=== PATIENT | male | born 1940 | race Caucasian/White ===

== ENCOUNTER 2016-07-06 16:01 | Inpatient (IN) | payer OTHER ==
--- NOTE | 2016-07-06 16:15 | EDPRACDOC ---
- General Information Stated Complaint: DIFF/BREATH Time Seen by Provider: 07/06/16 16:07 Home Medications: Home Medications Acetaminophen 650 mg PO Q8H PRN 07/06/16 Albuterol Sulfate Nebs [Proventil, Ventolin] 3 ml INH Q4H PRN 07/06/16 Aluminum;Magnesium;Simethicone [Maalox Plus, Mylanta] 15 ml PO QID 07/06/16 Amitriptyline HCl 50 mg PO QHS 07/06/16 Atorvastatin Calcium [Lipitor] 20 mg PO QHS 07/06/16 Bisacodyl [Dulcolax] 10 mg PO DAILY PRN 07/06/16 Brimonidine Tartrate 1 drop OU BID 07/06/16 Carvedilol [Coreg] 6.25 mg PO BID 07/06/16 Docusate Sodium [Colace] 100 mg PO BID 07/06/16 Dorzolamide HCl/Timolol Maleat [Dorzolamide-Timolol Eye Drops] 1 drop OU BID Ferrous Gluconate 324 mg PO DAILY 07/06/16 Furosemide [Lasix] 20 mg PO DAILY 07/06/16 Guaifenesin [Humabid, Mucinex] 600 mg PO BID 07/06/16 Ipratropium [place] 1 amp NEB Q4H PRN 07/06/16 Latanoprost 1 drop OU QHS 07/06/16 Metoclopramide HCl 10 mg PO .TID BEFORE MEALS 07/06/16 Multivitamin [One Daily] 1 tab PO DAILY 07/06/16 Nitroglycerin [Nitrostat] 0.4 mg SL Q5MX3 PRN 07/06/16 Pantoprazole Sodium [Protonix] 40 mg PO DAILY 07/06/16 Polyvinyl Alcohol [Artificial Tears] 2 drop OU Q12H 07/06/16 Sodium Chloride .65% 2 spray NATE BID 07/06/16 Warfarin Sodium 4 mg PO MOWEFR 07/06/16 Warfarin Sodium 5 mg PO SUTUTHSA 07/06/16 Allergies/Adverse Reactions: Allergies Allergy/AdvReac Type Severity Reaction Status Date / Time No Known Allergies Allergy Verified 07/06/16 16:49 - History of Present Illness HPI: SOB FOR 2 DAYS WITH PRODUCTIVE COUGH OF YELLOW SPUTUM. CHEST PAIN ACROSS CHEST TODAY. MODERATE TO SEVERE SOB. H/O ASBESTOSES. GOT ALBUTEROL NEB BY EMS. NO STEROIDS CURRENTLY. ED Past Medical History - History Reviewed Yes Nurses notes reviewed and agree except as marked EDM Review of Systems - Review of Systems ROS Negative Except as Marked: Yes All systems reviewed and were negative except as marked - Physical Exam Constitutional: Alert (Awake) Oriented to: Time, Person, Place Last recorded Vital Signs: Oxygen Pulse Oxygen Saturation O2 Device Oxygen Flow Rate Fraction of Inspired Oxygen ( FIO2) - HEENT Head: Normal ( normocephalic) Eye Exam: Normal (PERRL, EOMI, Sclera white) Oropharynx: Normal (Pharynx:Moist without exudate,Gums-no swelling) Nose: No Symptoms Reported (septum midline) Neck: Normal (FROM, trachea at midline) - Respiratory/Cardiovascular Respiratory: Rales, Wheezes Cardiovascular: Tachycardia - GI Auscultation: Normal (NABS) Palpation: Normal (Soft,No rebound or guarding, non distended) Tenderness: Non tender Mayorga's Sign: Negative - Musculoskeletal Back: Normal (Non-Tender) Extremities: Normal (Normal tone, Pulses 2+ No cyanosis or edema, FROM) - Integumentary Skin: Normal, Warm, Dry Lymphatics: Normal (no adenopathy) - Neurologic Memory Impaired: Normal Motor Function: Normal (Normal tone, Pulses 2+ No cyanosis or edema, FROM) Cranial Nerve: Normal (CN II-X11 intact sensation, strength 5/5) Cerebellar: Normal Mood Description: Normal Perception: Normal ED SOB MDM - Results Result Diagrams: 07/06/16 16:35 07/06/16 16:35 - EKG EKG #1 EKG Time: 16:24 -: Yes EKG interpreted by me Rate: bpm: 117 Rhythm: ST Block: None Hypertrophy: None ST: Normal Comments: NORMAL EKG - Departure Yes I personally saw and evaluated the patient. Disposition: Admit IP To This Hospital Final Diagnosis: Bilateral pneumonia Qualifiers: Pneumonia type: due to unspecified organism Lung location: unspecified part of lung Qualified Code(s): J18.9 - Pneumonia, unspecified organism Respiratory failure Qualifiers: Chronicity: acute Respiratory failure complication: hypoxia and hypercapnia Qualified Code(s): J96.01 - Acute respiratory failure with hypoxia; J96.02 - Acute respiratory failure with hypercapnia Decision to Admit Time: 17:08 Decision to admit date: 07/06/16 Decision to admit: from ED - Physician Consulted Hospitalist Time Called: 17:08 Provider Called: Javon Duron Time Fingernail Technician Returned Call: 17:08
[2016-07-06 16:28] LABS: ALLEN'S TEST PASS; BEb 10.3 (+/- 2); TCO2 36.5 MMOL/L (23-27)
[2016-07-06 16:29] LABS: ABG Draw Site Left Brachial
[2016-07-06] MEDS ORDERED: ACETAMINOPHEN 650 MG SUPP PR ONE (16:39)
[2016-07-06] MEDS ORDERED: ACETAMINOPHEN 325 MG SUPP PR ONE (16:39)
[2016-07-06 16:48] LABS: MPV 7.4 fL (7.4-10.4)
--- NOTE | 2016-07-06 16:54 | DIRPT ---
CLINICAL DATA: Shortness of breath 2 days with productive cough and chest pain. Former smoker. History of asbestosis. EXAM: PORTABLE CHEST 1 VIEW COMPARISON: None. FINDINGS: Lungs are somewhat hypoinflated with patchy bilateral airspace opacification over the mid to lower lungs left worse than right. Digestion of small amount of bilateral pleural fluid. Cardiomediastinal silhouette is within normal. Multiple surgical clips over the left upper quadrant. IMPRESSION: Patchy bilateral airspace process over the mid to lower lungs left worse than right likely infection. Likely small amount of bilateral pleural fluid. Electronically Signed By: Trevon Silverio M.D. On: 07/06/2016 16:51
[2016-07-06 17:01] LABS: BLOOD UREA NITROGEN 18 MG/DL (9-20); CALC CORRECTED 9.7 MG/DL (8.4-10.2); CALCIUM 9.3 MG/DL (8.4-10.2); CALCULATED OSMOLALITY 275 MOs/Kg (270-290); CHLORIDE 96 mEq/L (98-107); GLUCOSE 166 MG/DL (70-99); SODIUM LEVEL 140 mEq/L (137-146); TOTAL PROTEIN 7.3 G/DL (6.3-8.2)
[2016-07-06 17:05] LABS: PARTIAL THROMB. TIME 31.1 SEC (22-35); PT-INR 1.4
[2016-07-06] MEDS ORDERED: AZITHROMYCIN 500 MG in D5W 250 ML IV ONE (17:09)
[2016-07-06] MEDS ORDERED: CEFTRIAXONE 1 GM in D5W 100 ML IV ONE (17:09)
[2016-07-06 17:34] LABS: SEG NEUTROPHIL 87 % (45-76); TOTAL CELL COUNT 100
[2016-07-06] MEDS ORDERED: Albuterol/Ipratropium Neb 3 ML NEB NEB PRN (17:37)
[2016-07-06] MEDS ORDERED: DEXTROSE 25 GM/50 ML PFS IV PRN (17:37)
[2016-07-06] MEDS ORDERED: Docusate Sodium 100 MG CAP PO PRN (17:37)
[2016-07-06] MEDS ORDERED: GLUCAGON 1 MG VIAL SQ PRN (17:37)
[2016-07-06] MEDS ORDERED: GUAIFENESIN 200 MG/10 ML UDC PO PRN (17:37)
[2016-07-06] MEDS ORDERED: MAGNESIUM HYDROXIDE 30 ML BOTTLE PO PRN (17:37)
[2016-07-06] MEDS ORDERED: BENZONATATE 100 MG PERLES PO PRN (17:37)
[2016-07-06] MEDS ORDERED: ONDANSETRON HCL 4 MG/2 ML VIAL IV PRN (17:37)
[2016-07-06] MEDS ORDERED: GLUCOSE (ORAL GEL) 15 GM TUBE PO PRN (17:37)
--- NOTE | 2016-07-06 17:43 | HISTPHYS ---
- Chief Complaint shortness of breath - History of Present Illness Mr. Cruz is a 76-year-old white male inmate with multiple chronic medical problems who sent to the emergency room with increasing respiratory distress, fevers, chills, shortness of breath, cough, congestion that has steadily worsened over the last couple of days. In the emergency room he was significantly hypoxic and had to be started on BiPAP. Chest x-ray reveals bilateral pulmonary infiltrates. He is severely tachypneic with increased work of breathing and is unable to provide much other history over the BiPAP. He does appear septic and will be admitted to the intensive care unit for further evaluation and management. - Medical History Cardiac History: Reports: Coronary Artery Disease, Atrial Fibrillation Respiratory History: Reports: COPD, Asbestosis GI/ History: Reports: Renal Disease Musculoskeletal History: Reports: Arthritis Systemic History: Reports: Cancer Neurological History: Reports: Cerebrovascular Accident (X2) Psychological History: Denies: Depression - Surgical History Reports: Other (Urostomy) - Medictions/Allergies Allergies No Known Allergies Allergy (Verified 07/06/16 16:49) Current Medication List: Reviewed Home Medications Acetaminophen 650 mg PO Q8H PRN 07/06/16 Albuterol Sulfate Nebs [Proventil, Ventolin] 3 ml INH Q4H PRN 07/06/16 Aluminum;Magnesium;Simethicone [Maalox Plus, Mylanta] 15 ml PO QID 07/06/16 Amitriptyline HCl 50 mg PO QHS 07/06/16 Atorvastatin Calcium [Lipitor] 20 mg PO QHS 07/06/16 Bisacodyl [Dulcolax] 10 mg PO DAILY PRN 07/06/16 Brimonidine Tartrate 1 drop OU BID 07/06/16 Carvedilol [Coreg] 6.25 mg PO BID 07/06/16 Docusate Sodium [Colace] 100 mg PO BID 07/06/16 Dorzolamide HCl/Timolol Maleat [Dorzolamide-Timolol Eye Drops] 1 drop OU BID Ferrous Gluconate 324 mg PO DAILY 07/06/16 Furosemide [Lasix] 20 mg PO DAILY 07/06/16 Guaifenesin [Humabid, Mucinex] 600 mg PO BID 07/06/16 Ipratropium [place] 1 amp NEB Q4H PRN 07/06/16 Latanoprost 1 drop OU QHS 07/06/16 Metoclopramide HCl 10 mg PO .TID BEFORE MEALS 07/06/16 Multivitamin [One Daily] 1 tab PO DAILY 07/06/16 Nitroglycerin [Nitrostat] 0.4 mg SL Q5MX3 PRN 07/06/16 Pantoprazole Sodium [Protonix] 40 mg PO DAILY 07/06/16 Polyvinyl Alcohol [Artificial Tears] 2 drop OU Q12H 07/06/16 Sodium Chloride .65% 2 spray NATE BID 07/06/16 Warfarin Sodium 4 mg PO MOWEFR 07/06/16 Warfarin Sodium 5 mg PO SUTUTHSA 07/06/16 - Family History Reports: No Significant History (Unknown) - Social History Lives: Other (Halfway) Smoking Status: Former smoker (Quit 1974) Social History: Reports: Alcohol Use (Quit 1970) - Review of Systems Yes Review of systems cannot be obtained due to the patient's medical condition (Severe shortness of breath and bipap use) - Physical Exam Constitutional: Alert (Awake), Distress, Other (Severe distress with conversational dyspnea). negative: Well appearing (Acutely ill-appearing) Oriented to: Person Exam: Last Vital Signs Temp 100.7 F H 07/06/16 16:39 Pulse 113 07/06/16 16:39 Resp 26 H 07/06/16 16:39 BP 130/63 07/06/16 16:39 Pulse Ox 89 L 07/06/16 16:39 Intake & Output 07/06/16 07/06/16 07/06/16 07:59 15:59 23:59 Patient's weight 77.564 kg - HEENT Head: Normal ( normocephalic) Eye: Normal (PERRL, EOMI, Sclera white) Oropharynx: Normal (Pharynx:Moist without exudate,Gums-no swelling) Nose: No Symptoms Reported (septum midline) - Respiratory/Cardiovascular Respiratory: Accessory Muscle Use, Rales, Rhonchi, Tachypnea, Wheezes Cardiovascular: Tachycardia, Irregular - GI Auscultation: Normal (NABS) Palpation: Normal (Soft,No rebound or guarding, non distended), Other (Right abdominal urostomy) Tenderness: Non tender - Musculoskeletal Back: Normal (Non-Tender) Extremities: Normal (Normal tone, Pulses 2+ No cyanosis or edema, FROM), Femoral Pulse, Pedal Pulse - Integumentary Skin: Normal, Warm, Dry Lymphatics: Normal (no adenopathy). negative: Adenopathy - Neurologic Memory Impaired: Normal Motor Function: Normal Cranial Nerve: Normal Cerebellar: Normal Mood Description: Normal Thought: Coherent Perception: Normal - Focused CV Perfusion Exam Vital Signs: Last Vital Signs Temp 100.7 F H 07/06/16 16:39 Pulse 113 07/06/16 16:39 Resp 26 H 07/06/16 16:39 BP 130/63 07/06/16 16:39 Pulse Ox 89 L 07/06/16 16:39 - Lab Results Laboratory Results - last 24 hr 07/06/16 07/06/16 07/06/16 16:25 16:35 16:35 WBC 14.4 H RBC 4.70 Hgb 11.3 L Hct 36.3 L MCV 77 L MCH 24.1 L MCHC 31.2 L RDW 15.9 H Plt Count 222 MPV 7.4 Neut % (Auto) Cancelled Lymph % (Auto) Cancelled [place] % (Auto) Cancelled Eos % (Auto) Cancelled Baso % (Auto) Cancelled Absolute Neuts (auto) Cancelled Absolute Lymphs (auto) Cancelled Seg Neuts % (Manual) 87 H Band Neutrophils % 5 Lymphocytes % (Manual) 4 L Monocytes % (Manual) 4 Absolute Neutrophils 13.25 H Absolute Lymphocytes 0.58 L Toxic Granulation 1+ Platelet Estimate Norm RBC Morphology 1+ aniso PT INR APTT Puncture Site Left brachial pH 7.490 H pCO2 46.0 H pO2 49.0 L* HCO3 35.1 H Total CO2 36.5 H Base Excess 10.3 H FiO2 % 2l nc Specimen Drawn By Renzo Sodium 140 Potassium 4.5 Chloride 96 L Carbon Dioxide 35 H Anion Gap 14 BUN 18 Creatinine 0.80 Estimated GFR (MDRD) > 60 Glucose 166 H Calculated Osmolality 275 Calcium 9.3 Corrected Calcium 9.7 Total Bilirubin 0.9 AST 19 ALT 30 Alkaline Phosphatase 96 Troponin I < 0.01 Izj-X-Pkstfyaayhv Pept 215 Total Protein 7.3 Albumin 3.6 07/06/16 16:35 WBC RBC Hgb Hct MCV MCH MCHC RDW Plt Count MPV Neut % (Auto) Lymph % (Auto) [place] % (Auto) Eos % (Auto) Baso % (Auto) Absolute Neuts (auto) Absolute Lymphs (auto) Seg Neuts % (Manual) Band Neutrophils % Lymphocytes % (Manual) Monocytes % (Manual) Absolute Neutrophils Absolute Lymphocytes Toxic Granulation Platelet Estimate RBC Morphology PT 14.6 H INR 1.4 APTT 31.1 Puncture Site pH pCO2 pO2 HCO3 Total CO2 Base Excess FiO2 % Specimen Drawn By Sodium Potassium Chloride Carbon Dioxide Anion Gap BUN Creatinine Estimated GFR (MDRD) Glucose Calculated Osmolality Calcium Corrected Calcium Total Bilirubin AST ALT Alkaline Phosphatase Troponin I Vxa-E-Posoauutkrm Pept Total Protein Albumin - Assessment (1) Respiratory failure J96.90 - RESPIRATORY FAILURE, UNSP, UNSP W HYPOXIA OR HYPERCAPNIA Acute Present on Admission: Yes Qualifiers: Chronicity: acute Respiratory failure complication: hypoxia and hypercapnia Qualified Code(s): J96.01 - Acute respiratory failure with hypoxia ; J96.02 - Acute respiratory failure with hypercapnia Severe with a PO2 in the 40s. Currently sats in the low 90s on BiPAP. This appears to be due to COPD and bilateral pneumonia. IV antibiotics, IV steroids , nebulizer treatments and BiPAP use. Aggressive ICU care. (2) Sepsis A41.9 - SEPSIS, UNSPECIFIED ORGANISM Acute Present on Admission: Yes Qualifiers: Sepsis type: sepsis due to unspecified organism Qualified Code(s): A41.9 - Sepsis, unspecified organism Due to bilateral pneumonia. Severely congested and short of breath. Admit to the intensive care unit on BiPAP. IV fluids, IV antibiotics. Blood, sputum, urine cultures. Patient is acutely and critically ill (3) Bilateral pneumonia J18.9 - PNEUMONIA, UNSPECIFIED ORGANISM Acute Present on Admission: Yes Qualifiers: Pneumonia type: due to unspecified organism Lung location: unspecified part of lung Qualified Code(s): J18.9 - Pneumonia, unspecified organism As above. IV antibiotics and pulmonary toilet. Sputum culture if able. Nebulizer treatments and BiPAP use. Aggressive ICU care. May require intubation (4) COPD exacerbation J44.1 - CHRONIC OBSTRUCTIVE PULMONARY DISEASE W (ACUTE) EXACERBATION Acute Present on Admission: Yes Moderate wheezing and shortness of breath. IV steroids, nebulizer treatments pulmonary toilet (5) Atrial fibrillation I48.91 - UNSPECIFIED ATRIAL FIBRILLATION Chronic Present on Admission: Yes Qualifiers: Atrial fibrillation type: chronic Qualified Code(s): I48.2 - Chronic atrial fibrillation Some tachycardia currently likely due to acute respiratory illness. INR subtherapeutic at 1.4. Will cover with Lovenox. Case Care Discussed with: Patient Total Time: 1 hour 30 minutes Critical Care: Yes
[2016-07-06] MEDS ORDERED: POLYVINYL ALCOHOL OU SCH (17:45)
[2016-07-06] MEDS ORDERED: NS 1,000 ML IV ONE (17:46)
[2016-07-06] MEDS ORDERED: WARFARIN EDUCATION DOCUMENTATION ONE (18:00)
[2016-07-06] MEDS ORDERED: ENOXAPARIN 40 MG/0.4 ML PFS SQ SCH (18:00)
[2016-07-06] MEDS ORDERED: DORZOLAMIDE/TIMOLOL OPHTH SOLN 10 ML OU SCH (19:00)
[2016-07-06] MEDS ORDERED: LATANOPROST 0.005% OPHTH SOLN 2.5 ML OU SCH (19:00)
[2016-07-06] MEDS ORDERED: BRIMONIDINE 0.1% OPHTH SOLN 5 ML OU SCH (19:00)
[2016-07-06] MEDS: Albuterol/Ipratropium Neb 3 ML NEB NEB SCH (19:15)
[2016-07-06] MEDS: METHYLPREDNISOLONE 125 MG/2 ML VIAL IV SCH (19:55)
[2016-07-06] MEDS: WARFARIN 5 MG TAB PO SCH (19:56)
[2016-07-06] MEDS: ENOXAPARIN 80 MG/0.8 ML PFS SQ SCH (20:30)
[2016-07-06] MEDS: REGULAR INSULIN 100 UNITS/ML - 3 ML VIAL SQ SCH (20:32)
[2016-07-06] MEDS: ARTIFICIAL TEARS OPH SOLN 15 ML OU SCH (20:36)
[2016-07-06] MEDS: BRIMONIDINE 0.1% OPHTH SOLN 5 ML OU SCH (20:37)
[2016-07-06] MEDS: NACL 0.65% NASAL 45 ML BOTTLE NAS SCH (20:37)
[2016-07-06] MEDS: Aluminum;Magnesium;Simethicone 30 ML UDC PO SCH (20:38)
[2016-07-06] MEDS: ATORVASTATIN 20 MG TAB PO SCH (20:39)
[2016-07-06] MEDS: GUAIFENESIN 600 MG LA TAB PO SCH (20:39)
[2016-07-06] MEDS: DORZOLAMIDE/TIMOLOL OPHTH SOLN 10 ML OU SCH (20:40)
[2016-07-06] MEDS: AMITRIPTYLINE 50 MG TAB PO SCH (20:40)
[2016-07-06] MEDS: Docusate Sodium 100 MG CAP PO SCH (20:40)
[2016-07-06] MEDS: CARVEDILOL 6.25 MG TAB PO SCH (20:40)
[2016-07-06] MEDS: CHLORHEXIDINE (HIBICLENS) 4 OZ BOTTLE TOP SCH (20:41)
[2016-07-06] MEDS: LATANOPROST 0.005% OPHTH SOLN 2.5 ML OU SCH (20:42)
[2016-07-06] MEDS ORDERED: SODIUM CHLORIDE 0.65% NAS SCH (21:00)
[2016-07-06] MEDS ORDERED: ACETAMINOPHEN 325 MG/TAB TABLET PO PRN (23:00)
[2016-07-06] MEDS ORDERED: Vaccine Screening Complete SCH (23:00)
[2016-07-07] MEDS: METHYLPREDNISOLONE 125 MG/2 ML VIAL IV SCH ×5 (00:51→23:30)
[2016-07-07] MEDS: Albuterol/Ipratropium Neb 3 ML NEB NEB SCH ×4 (01:33→20:50)
[2016-07-07 05:37] LABS: ALLEN'S TEST PASS; BEb 7.9 (+/- 2); TCO2 37.5 MMOL/L (23-27)
[2016-07-07 05:38] LABS: ABG Draw Site Right Radial
[2016-07-07 05:39] LABS: BI-PAP 14/6 cm H2O
[2016-07-07] MEDS: PANTOPRAZOLE 40 MG TAB PO SCH (05:46)
[2016-07-07] MEDS: REGULAR INSULIN 100 UNITS/ML - 3 ML VIAL SQ SCH ×4 (06:37→21:45)
[2016-07-07] MEDS: METOCLOPRAMIDE 10 MG TAB PO SCH ×3 (06:39→17:03)
[2016-07-07] MEDS ORDERED: NS 500 ML IV ONE (06:42)
[2016-07-07 06:45] LABS: MPV 7.4 fL (7.4-10.4)
[2016-07-07 07:03] LABS: BLOOD UREA NITROGEN 21 MG/DL (9-20); CALCIUM 9.2 MG/DL (8.4-10.2); CALCULATED OSMOLALITY 284 MOs/Kg (270-290); CHLORIDE 99 mEq/L (98-107); GLUCOSE 170 MG/DL (70-99); SODIUM LEVEL 144 mEq/L (137-146)
[2016-07-07 07:21] LABS: PARTIAL THROMB. TIME 37.8 SEC (22-35); PT-INR 1.6
[2016-07-07 08:25] LABS: SEG NEUTROPHIL 84 % (45-76); TOTAL CELL COUNT 100
[2016-07-07] MEDS ORDERED: FERROUS GLUCONATE 324 MG PO SCH (09:00)
[2016-07-07] MEDS ORDERED: Non-Formulary Medication ITEM (Multivitamin [One Daily] 1 TAB) PO SCH (09:00)
[2016-07-07] MEDS: BRIMONIDINE 0.1% OPHTH SOLN 5 ML OU SCH ×2 (09:11→22:01)
[2016-07-07] MEDS: CARVEDILOL 6.25 MG TAB PO SCH ×2 (09:12→22:01)
[2016-07-07] MEDS: Docusate Sodium 100 MG CAP PO SCH ×2 (09:12→22:00)
[2016-07-07] MEDS: GUAIFENESIN 600 MG LA TAB PO SCH ×2 (09:12→21:59)
[2016-07-07] MEDS: Aluminum;Magnesium;Simethicone 30 ML UDC PO SCH ×4 (09:12→22:00)
[2016-07-07] MEDS: FUROSEMIDE 20 MG TAB PO SCH (09:12)
[2016-07-07] MEDS: ENOXAPARIN 80 MG/0.8 ML PFS SQ SCH ×2 (09:15→21:59)
[2016-07-07] MEDS: ARTIFICIAL TEARS OPH SOLN 15 ML OU SCH ×2 (09:15→22:00)
[2016-07-07] MEDS: NACL 0.65% NASAL 45 ML BOTTLE NAS SCH ×2 (09:16→22:00)
[2016-07-07] MEDS: DORZOLAMIDE/TIMOLOL OPHTH SOLN 10 ML OU SCH ×2 (09:17→23:31)
[2016-07-07] MEDS: VITAMINS, MULTIPLE CAP PO SCH (11:54)
[2016-07-07] MEDS: FERROUS SULFATE 324 MG TAB PO SCH (11:54)
--- NOTE | 2016-07-07 16:07 | GENMEDPROG ---
Chief Complaint: Still very short of breath with any exertion. We have been able to wean him off BiPAP. Moderate congestion on exam. Notes Reviewed: Yes Events from last night noted and discussed with Clinical Staff Current Medication List: Reviewed Currently: Reports: Cough, Wheezing, DANGELO, SOB. Denies: Nausea and Vomiting, Abdominal Pain, Chest Pain - Physical Examination Vital Signs and I&O: Last Vital Signs Temp 97.6 F 07/07/16 14:00 Pulse 83 07/07/16 15:00 Resp 18 07/07/16 14:00 BP 123/56 L 07/07/16 15:00 Pulse Ox 95 07/07/16 15:00 Oxygen Pulse Oxygen Saturation 95 O2 Device BiPAP Oxygen Flow Rate Fraction of Inspired Oxygen ( 30 FIO2) Intake & Output 07/04/16 07/05/16 07/06/16 07/07/16 23:59 23:59 23:59 23:59 Intake Total 205 817 Output Total 250 625 Balance -45 192 Patient's weight 76.793 kg 77.065 kg General: Alert, Oriented x3, Cooperative, Mild distress. negative: Well appearing (Chronically ill-appearing) HEENT: Normal, PERRLA, EOMI, Anicteric Sclera Neck: Non-tender, Full range of motion, Normal Trachea alignment, Normal inspection. negative: JVD Lymphatics: Normal (no adenopathy). negative: Adenopathy Respiratory: Accessory Muscle Use, Rales, Rhonchi, Tachypnea, Wheezes Cardiovascular: Regular rate and rhythm, No Gallops,Rubs/Murmurs GI: Normal bowel sounds, Soft, Non tender, No hepatospenomegaly Extremities/Musculoskeletal: Normal pulses. negative: Tenderness, Swelling, Edema Skin: Warm,Dry and Intact, No rashes, No breakdown Neurological: Normal Steady Gait, Normal speech, Strength at 5/5 X4 ext, Normal tone Psych/Mental Status: Appropriate, Normal Affect, Cooperative Lab/DI/Studies Reviewed: Laboratory Results - last 24 hr 07/06/16 07/06/16 07/06/16 16:25 16:35 16:35 WBC 14.4 H RBC 4.70 Hgb 11.3 L Hct 36.3 L MCV 77 L MCH 24.1 L MCHC 31.2 L RDW 15.9 H Plt Count 222 MPV 7.4 Neut % (Auto) Cancelled Lymph % (Auto) Cancelled [place] % (Auto) Cancelled Eos % (Auto) Cancelled Baso % (Auto) Cancelled Absolute Neuts (auto) Cancelled Absolute Lymphs (auto) Cancelled Seg Neuts % (Manual) 87 H Band Neutrophils % 5 Lymphocytes % (Manual) 4 L Monocytes % (Manual) 4 Absolute Neutrophils 13.25 H Absolute Lymphocytes 0.58 L Vacuolated Neuts Toxic Granulation 1+ Dohle Bodies Platelet Estimate Norm RBC Morphology 1+ aniso PT INR APTT Puncture Site Left brachial pH 7.490 H pCO2 46.0 H pO2 49.0 L* HCO3 35.1 H Total CO2 36.5 H Base Excess 10.3 H FiO2 % 2l nc Mode BiPAP Specimen Drawn By Renzo Sodium 140 Potassium 4.5 Chloride 96 L Carbon Dioxide 35 H Anion Gap 14 BUN 18 Creatinine 0.80 Estimated GFR (MDRD) > 60 Glucose 166 H POC Capillary Glucose Hemoglobin A1c Calculated Osmolality 275 Calcium 9.3 Corrected Calcium 9.7 Total Bilirubin 0.9 AST 19 ALT 30 Alkaline Phosphatase 96 Troponin I < 0.01 Rhq-B-Mpspfygmbsc Pept 215 Total Protein 7.3 Albumin 3.6 07/06/16 07/06/16 07/06/16 16:35 16:35 19:55 WBC RBC Hgb Hct MCV MCH MCHC RDW Plt Count MPV Neut % (Auto) Lymph % (Auto) [place] % (Auto) Eos % (Auto) Baso % (Auto) Absolute Neuts (auto) Absolute Lymphs (auto) Seg Neuts % (Manual) Band Neutrophils % Lymphocytes % (Manual) Monocytes % (Manual) Absolute Neutrophils Absolute Lymphocytes Vacuolated Neuts Toxic Granulation Dohle Bodies Platelet Estimate RBC Morphology PT 14.6 H INR 1.4 APTT 31.1 Puncture Site pH pCO2 pO2 HCO3 Total CO2 Base Excess FiO2 % Mode BiPAP Specimen Drawn By Sodium Potassium Chloride Carbon Dioxide Anion Gap BUN Creatinine Estimated GFR (MDRD) Glucose POC Capillary Glucose Hemoglobin A1c 6.0 H Calculated Osmolality Calcium Corrected Calcium Total Bilirubin AST ALT Alkaline Phosphatase Troponin I < 0.01 Wfb-[id number]-Laxiyctdhsq Pept Total Protein Albumin 07/06/16 07/07/16 07/07/16 20:08 05:13 05:30 WBC RBC Hgb Hct MCV MCH MCHC RDW Plt Count MPV Neut % (Auto) Lymph % (Auto) [place] % (Auto) Eos % (Auto) Baso % (Auto) Absolute Neuts (auto) Absolute Lymphs (auto) Seg Neuts % (Manual) Band Neutrophils % Lymphocytes % (Manual) Monocytes % (Manual) Absolute Neutrophils Absolute Lymphocytes Vacuolated Neuts Toxic Granulation Dohle Bodies Platelet Estimate RBC Morphology PT INR APTT Puncture Site Right radial pH 7.360 pCO2 63.0 H pO2 89.0 HCO3 35.6 H Total CO2 37.5 H Base Excess 7.9 H FiO2 % 30% Mode BiPAP 14/6 Specimen Drawn By Smijen Sodium Potassium Chloride Carbon Dioxide Anion Gap BUN Creatinine Estimated GFR (MDRD) Glucose POC Capillary Glucose 198 H 174 H Hemoglobin A1c Calculated Osmolality Calcium Corrected Calcium Total Bilirubin AST ALT Alkaline Phosphatase Troponin I Oik-K-Jugowvxvqnj Pept Total Protein Albumin 07/07/16 07/07/16 07/07/16 05:45 05:45 05:45 WBC 12.3 H RBC 4.51 L Hgb 11.0 L Hct 34.7 L MCV 77 L MCH 24.3 L MCHC 31.6 L RDW 16.1 H Plt Count 201 MPV 7.4 Neut % (Auto) Cancelled Lymph % (Auto) Cancelled [place] % (Auto) Cancelled Eos % (Auto) Cancelled Baso % (Auto) Cancelled Absolute Neuts (auto) Cancelled Absolute Lymphs (auto) Cancelled Seg Neuts % (Manual) 84 H Band Neutrophils % 14 H Lymphocytes % (Manual) 1 L Monocytes % (Manual) 1 Absolute Neutrophils 12.05 H Absolute Lymphocytes 0.12 L Vacuolated Neuts 1+ Toxic Granulation 1+ Dohle Bodies Occ Platelet Estimate Norm RBC Morphology 1+ micro PT 16.8 H INR 1.6 APTT 37.8 H Puncture Site pH pCO2 pO2 HCO3 Total CO2 Base Excess FiO2 % Mode BiPAP Specimen Drawn By Sodium 144 Potassium 4.4 Chloride 99 Carbon Dioxide 35 H Anion Gap 14 BUN 21 H Creatinine 0.80 Estimated GFR (MDRD) > 60 Glucose 170 H POC Capillary Glucose Hemoglobin A1c Calculated Osmolality 284 Calcium 9.2 Corrected Calcium Total Bilirubin AST ALT Alkaline Phosphatase Troponin I Bys-X-Lzskakngvou Pept Total Protein Albumin 07/07/16 10:36 WBC RBC Hgb Hct MCV MCH MCHC RDW Plt Count MPV Neut % (Auto) Lymph % (Auto) [place] % (Auto) Eos % (Auto) Baso % (Auto) Absolute Neuts (auto) Absolute Lymphs (auto) Seg Neuts % (Manual) Band Neutrophils % Lymphocytes % (Manual) Monocytes % (Manual) Absolute Neutrophils Absolute Lymphocytes Vacuolated Neuts Toxic Granulation Dohle Bodies Platelet Estimate RBC Morphology PT INR APTT Puncture Site pH pCO2 pO2 HCO3 Total CO2 Base Excess FiO2 % Mode BiPAP Specimen Drawn By Sodium Potassium Chloride Carbon Dioxide Anion Gap BUN Creatinine Estimated GFR (MDRD) Glucose POC Capillary Glucose 166 H Hemoglobin A1c Calculated Osmolality Calcium Corrected Calcium Total Bilirubin AST ALT Alkaline Phosphatase Troponin I Zqy-G-Lxclbyneacj Pept Total Protein Albumin - Assessment (1) Respiratory failure Acute J96.90 - RESPIRATORY FAILURE, UNSP, UNSP W HYPOXIA OR HYPERCAPNIA Qualifiers: Chronicity: acute Respiratory failure complication: hypoxia and hypercapnia Qualified Code(s): J96.01 - Acute respiratory failure with hypoxia ; J96.02 - Acute respiratory failure with hypercapnia Comment/Plan: Oxygenation some better. Still significantly short of breath with increased work of breathing. Says lifting his food tray cause significant shortness of breath. Continue IV steroids, IV antibiotics and nebulizer treatments. (2) Sepsis Acute A41.9 - SEPSIS, UNSPECIFIED ORGANISM Qualifiers: Sepsis type: sepsis due to unspecified organism Qualified Code(s): A41.9 - Sepsis, unspecified organism Comment/Plan: Improving. Continue IV fluids, IV antibiotics, nebulizer treatments and pulmonary toilet. (3) Bilateral pneumonia Acute J18.9 - PNEUMONIA, UNSPECIFIED ORGANISM Qualifiers: Pneumonia type: due to unspecified organism Lung location: unspecified part of lung Qualified Code(s): J18.9 - Pneumonia, unspecified organism Comment/Plan: Significantly less distress today. However still very symptomatic. Continue IV antibiotics and pulmonary toilet. (4) COPD exacerbation Acute J44.1 - CHRONIC OBSTRUCTIVE PULMONARY DISEASE W (ACUTE) EXACERBATION Comment/Plan: Moderate wheezing and shortness of breath. IV steroids, nebulizer treatments pulmonary toilet (5) Atrial fibrillation Chronic I48.91 - UNSPECIFIED ATRIAL FIBRILLATION Qualifiers: Atrial fibrillation type: chronic Qualified Code(s): I48.2 - Chronic atrial fibrillation Comment/Plan: Some tachycardia currently likely due to acute respiratory illness. INR subtherapeutic at 1.6. Will cover with Lovenox. Case Care Discussed with: Patient, Nursing Staff, Physical Therapy, Resource Management, Respiratory Therapy, Pulmonary Physician
[2016-07-07] MEDS: WARFARIN 4 MG TAB PO SCH (17:03)
[2016-07-07] MEDS: AZITHROMYCIN 500 MG in D5W 250 ML IV SCH (17:03)
[2016-07-07] MEDS: This patient is receiving warfarin therapy SCH (17:13)
[2016-07-07] MEDS: CEFTRIAXONE 1 GM in D5W 100 ML IV SCH (20:59)
[2016-07-07] MEDS: AMITRIPTYLINE 50 MG TAB PO SCH (21:59)
[2016-07-07] MEDS: ATORVASTATIN 20 MG TAB PO SCH (22:00)
[2016-07-07] MEDS: CHLORHEXIDINE (HIBICLENS) 4 OZ BOTTLE TOP SCH (22:01)
[2016-07-07] MEDS: LATANOPROST 0.005% OPHTH SOLN 2.5 ML OU SCH (22:01)
[2016-07-08] MEDS: Albuterol/Ipratropium Neb 3 ML NEB NEB SCH ×4 (01:40→21:10)
[2016-07-08 04:41] LABS: ALLEN'S TEST PASS; BEb 8.7 (+/- 2)
[2016-07-08 04:42] LABS: ABG Draw Site Left Radial; BI-PAP 14/6 cm H2O
[2016-07-08 05:01] LABS: MPV 7.5 fL (7.4-10.4)
[2016-07-08 05:10] LABS: PT-INR 2.9
[2016-07-08 05:43] LABS: SEG NEUTROPHIL 88 % (45-76)
[2016-07-08 05:56] LABS: BLOOD UREA NITROGEN 34 MG/DL (9-20); CALCIUM 9.1 MG/DL (8.4-10.2); CALCULATED OSMOLALITY 284 MOs/Kg (270-290); CHLORIDE 99 mEq/L (98-107); GLUCOSE 184 MG/DL (70-99); SODIUM LEVEL 141 mEq/L (137-146)
[2016-07-08] MEDS: REGULAR INSULIN 100 UNITS/ML - 3 ML VIAL SQ SCH ×4 (06:10→21:04)
[2016-07-08] MEDS: PANTOPRAZOLE 40 MG TAB PO SCH (06:10)
[2016-07-08] MEDS: METHYLPREDNISOLONE 125 MG/2 ML VIAL IV SCH ×3 (06:11→16:31)
[2016-07-08] MEDS: GUAIFENESIN 600 MG LA TAB PO SCH ×2 (07:54→21:01)
[2016-07-08] MEDS: CARVEDILOL 6.25 MG TAB PO SCH ×2 (07:55→21:00)
[2016-07-08] MEDS: FUROSEMIDE 20 MG TAB PO SCH (07:55)
[2016-07-08] MEDS: METOCLOPRAMIDE 10 MG TAB PO SCH ×3 (07:55→16:30)
[2016-07-08] MEDS: ARTIFICIAL TEARS OPH SOLN 15 ML OU SCH ×2 (07:56→20:58)
[2016-07-08] MEDS: Docusate Sodium 100 MG CAP PO SCH ×2 (07:56→21:00)
[2016-07-08] MEDS: BRIMONIDINE 0.1% OPHTH SOLN 5 ML OU SCH ×2 (07:58→21:06)
[2016-07-08] MEDS: Aluminum;Magnesium;Simethicone 30 ML UDC PO SCH ×4 (07:58→21:07)
[2016-07-08] MEDS: ENOXAPARIN 80 MG/0.8 ML PFS SQ SCH (07:59)
[2016-07-08] MEDS: DORZOLAMIDE/TIMOLOL OPHTH SOLN 10 ML OU SCH ×2 (08:01→20:59)
[2016-07-08] MEDS: NACL 0.65% NASAL 45 ML BOTTLE NAS SCH ×2 (08:02→20:57)
--- NOTE | 2016-07-08 08:15 | GENMEDPROG ---
Chief Complaint: Still severely congested though he is improving. Very poor exercise tolerance and very sob with any exertion Notes Reviewed: Yes Events from last night noted and discussed with Clinical Staff Current Medication List: Reviewed Currently: Reports: Cough, Wheezing, DANGELO, SOB. Denies: Nausea and Vomiting, Abdominal Pain, Chest Pain - Physical Examination Vital Signs and I&O: Last Vital Signs Temp 97.7 F 07/08/16 07:00 Pulse 85 07/08/16 08:00 Resp 21 07/08/16 08:00 BP 163/75 07/08/16 08:00 Pulse Ox 94 07/08/16 08:00 Oxygen Pulse Oxygen Saturation 94 O2 Device Nasal Cannula Oxygen Flow Rate 3 Fraction of Inspired Oxygen ( 30 FIO2) Intake & Output 07/05/16 07/06/16 07/07/16 07/08/16 23:59 23:59 23:59 23:59 Intake Total 205 1767 Output Total 250 825 675 Balance -45 942 -675 Patient's weight 76.793 kg 77.065 kg 76.521 kg General: Alert, Oriented x3, Cooperative, Mild distress. negative: Well appearing (Chronically ill-appearing) HEENT: Normal, PERRLA, EOMI, Anicteric Sclera Neck: Non-tender, Full range of motion, Normal Trachea alignment, Normal inspection. negative: JVD Lymphatics: Normal (no adenopathy). negative: Adenopathy Respiratory: Accessory Muscle Use, Rales, Rhonchi, Tachypnea, Wheezes Cardiovascular: Regular rate and rhythm, No Gallops,Rubs/Murmurs GI: Normal bowel sounds, Soft, Non tender, No hepatospenomegaly Extremities/Musculoskeletal: Normal pulses. negative: Tenderness, Swelling, Edema Skin: Warm,Dry and Intact, No rashes, No breakdown Neurological: Normal Steady Gait, Normal speech, Strength at 5/5 X4 ext, Normal tone Psych/Mental Status: Appropriate, Normal Affect, Cooperative Lab/DI/Studies Reviewed: Laboratory Results - last 24 hr 07/07/16 07/07/16 07/08/16 16:23 21:33 04:35 WBC RBC Hgb Hct MCV MCH MCHC RDW Plt Count MPV Neut % (Auto) Lymph % (Auto) [place] % (Auto) Eos % (Auto) Baso % (Auto) Absolute Neuts (auto) Absolute Lymphs (auto) Seg Neuts % (Manual) Band Neutrophils % Lymphocytes % (Manual) Monocytes % (Manual) Absolute Neutrophils Absolute Lymphocytes Platelet Estimate RBC Morphology PT 30.5 H INR 2.9 Puncture Site pH pCO2 pO2 HCO3 Total CO2 Base Excess FiO2 % Mode BiPAP Specimen Drawn By Sodium Potassium Chloride Carbon Dioxide Anion Gap BUN Creatinine Estimated GFR (MDRD) Glucose POC Capillary Glucose 220 H 256 H Calculated Osmolality Calcium 07/08/16 07/08/16 07/08/16 04:35 04:35 04:35 WBC 18.6 H RBC 4.53 L Hgb 10.9 L Hct 34.5 L MCV 76 L MCH 24.1 L MCHC 31.6 L RDW 16.1 H Plt Count 238 MPV 7.5 Neut % (Auto) Cancelled Lymph % (Auto) Cancelled [place] % (Auto) Cancelled Eos % (Auto) Cancelled Baso % (Auto) Cancelled Absolute Neuts (auto) Cancelled Absolute Lymphs (auto) Cancelled Seg Neuts % (Manual) 88 H Band Neutrophils % 3 Lymphocytes % (Manual) 6 L Monocytes % (Manual) 3 Absolute Neutrophils 16.93 H Absolute Lymphocytes 1.12 Platelet Estimate Norm RBC Morphology Reviewed this admiss PT INR Puncture Site Left radial pH 7.380 pCO2 61.0 H pO2 80.0 HCO3 36.1 H Total CO2 38.0 H Base Excess 8.7 H FiO2 % 30 Mode BiPAP 14/6 Specimen Drawn By [place] Sodium 141 Potassium 4.9 Chloride 99 Carbon Dioxide 33 Anion Gap 14 BUN 34 H Creatinine 0.90 Estimated GFR (MDRD) > 60 Glucose 184 H POC Capillary Glucose Calculated Osmolality 284 Calcium 9.1 07/08/16 07/08/16 06:06 12:03 WBC RBC Hgb Hct MCV MCH MCHC RDW Plt Count MPV Neut % (Auto) Lymph % (Auto) [place] % (Auto) Eos % (Auto) Baso % (Auto) Absolute Neuts (auto) Absolute Lymphs (auto) Seg Neuts % (Manual) Band Neutrophils % Lymphocytes % (Manual) Monocytes % (Manual) Absolute Neutrophils Absolute Lymphocytes Platelet Estimate RBC Morphology PT INR Puncture Site pH pCO2 pO2 HCO3 Total CO2 Base Excess FiO2 % Mode BiPAP Specimen Drawn By Sodium Potassium Chloride Carbon Dioxide Anion Gap BUN Creatinine Estimated GFR (MDRD) Glucose POC Capillary Glucose 192 H 301 H Calculated Osmolality Calcium - Assessment (1) Respiratory failure Acute J96.90 - RESPIRATORY FAILURE, UNSP, UNSP W HYPOXIA OR HYPERCAPNIA Qualifiers: Chronicity: acute Respiratory failure complication: hypoxia and hypercapnia Qualified Code(s): J96.01 - Acute respiratory failure with hypoxia ; J96.02 - Acute respiratory failure with hypercapnia Comment/Plan: Clinically some better. However still very congested and very symptomatic. Continue IV steroids, IV antibiotics and nebulizer treatments. Should be okay to go out of the ICU today. (2) Sepsis Acute A41.9 - SEPSIS, UNSPECIFIED ORGANISM Qualifiers: Sepsis type: sepsis due to unspecified organism Qualified Code(s): A41.9 - Sepsis, unspecified organism Comment/Plan: Improving. Continue IV fluids, IV antibiotics, nebulizer treatments and pulmonary toilet. (3) Bilateral pneumonia Acute J18.9 - PNEUMONIA, UNSPECIFIED ORGANISM Qualifiers: Pneumonia type: due to unspecified organism Lung location: unspecified part of lung Qualified Code(s): J18.9 - Pneumonia, unspecified organism Comment/Plan: Significantly less distress today. However still very symptomatic. Continue IV antibiotics and pulmonary toilet. (4) COPD exacerbation Acute J44.1 - CHRONIC OBSTRUCTIVE PULMONARY DISEASE W (ACUTE) EXACERBATION Comment/Plan: Moderate wheezing and shortness of breath. IV steroids, nebulizer treatments pulmonary toilet (5) Atrial fibrillation Chronic I48.91 - UNSPECIFIED ATRIAL FIBRILLATION Qualifiers: Atrial fibrillation type: chronic Qualified Code(s): I48.2 - Chronic atrial fibrillation Comment/Plan: Some tachycardia currently likely due to acute respiratory illness. INR 2.9. DC Lovenox. Case Care Discussed with: Patient, Nursing Staff, Physical Therapy, Resource Management, Respiratory Therapy, Director Of Physiotherapy Services
[2016-07-08] MEDS: FERROUS SULFATE 324 MG TAB PO SCH (12:13)
[2016-07-08] MEDS: VITAMINS, MULTIPLE CAP PO SCH (12:13)
[2016-07-08] MEDS: AZITHROMYCIN 500 MG in D5W 250 ML IV SCH (16:28)
[2016-07-08] MEDS: This patient is receiving warfarin therapy SCH (16:30)
[2016-07-08] MEDS ORDERED: NITROGLYCERINE 0.4 MG TAB SL ONE ×2 (17:38→17:51)
[2016-07-08] MEDS: CEFTRIAXONE 1 GM in D5W 100 ML IV SCH (20:53)
[2016-07-08] MEDS: ATORVASTATIN 20 MG TAB PO SCH (21:00)
[2016-07-08] MEDS: AMITRIPTYLINE 50 MG TAB PO SCH (21:01)
[2016-07-08] MEDS: LATANOPROST 0.005% OPHTH SOLN 2.5 ML OU SCH (21:02)
[2016-07-08] MEDS: CHLORHEXIDINE (HIBICLENS) 4 OZ BOTTLE TOP SCH (21:08)
[2016-07-09] MEDS: METHYLPREDNISOLONE 125 MG/2 ML VIAL IV SCH ×5 (00:19→23:39)
[2016-07-09] MEDS: Albuterol/Ipratropium Neb 3 ML NEB NEB SCH ×4 (02:52→19:28)
[2016-07-09] MEDS: PANTOPRAZOLE 40 MG TAB PO SCH (05:38)
[2016-07-09] MEDS: METOCLOPRAMIDE 10 MG TAB PO SCH ×3 (05:40→16:16)
[2016-07-09] MEDS: REGULAR INSULIN 100 UNITS/ML - 3 ML VIAL SQ SCH ×4 (05:41→21:47)
[2016-07-09 08:14] LABS: BLOOD UREA NITROGEN 36 MG/DL (9-20); CALCULATED OSMOLALITY 293 MOs/Kg (270-290); CHLORIDE 100 mEq/L (98-107); GLUCOSE 175 MG/DL (70-99); MPV 7.4 fL (7.4-10.4); SODIUM LEVEL 146 mEq/L (137-146)
[2016-07-09 08:41] LABS: PT-INR 2.3
[2016-07-09] MEDS: Aluminum;Magnesium;Simethicone 30 ML UDC PO SCH ×4 (09:03→19:57)
[2016-07-09] MEDS: Docusate Sodium 100 MG CAP PO SCH ×2 (09:04→19:55)
[2016-07-09] MEDS: BRIMONIDINE 0.1% OPHTH SOLN 5 ML OU SCH ×2 (09:04→19:54)
[2016-07-09] MEDS: ARTIFICIAL TEARS OPH SOLN 15 ML OU SCH ×2 (09:04→19:55)
[2016-07-09] MEDS: CARVEDILOL 6.25 MG TAB PO SCH ×2 (09:05→19:59)
[2016-07-09] MEDS: GUAIFENESIN 600 MG LA TAB PO SCH ×2 (09:05→19:57)
[2016-07-09] MEDS: FUROSEMIDE 20 MG TAB PO SCH (09:05)
[2016-07-09] MEDS: DORZOLAMIDE/TIMOLOL OPHTH SOLN 10 ML OU SCH ×2 (09:05→19:58)
[2016-07-09] MEDS: NACL 0.65% NASAL 45 ML BOTTLE NAS SCH ×2 (09:06→19:57)
--- NOTE | 2016-07-09 10:05 | DIRPT ---
CLINICAL DATA: Followup of pneumonia. EXAM: PORTABLE CHEST 1 VIEW COMPARISON: 07/06/2016 FINDINGS: Patient rotated to the left. Mild cardiomegaly. Probable small bilateral pleural effusions. No pneumothorax. Extremely low lung volumes. Patchy lower lobe pulmonary opacities are slightly progressive, accentuated by diminished lung volumes. Possible bilateral pleural calcifications. Left upper abdominal surgical clips. IMPRESSION: Diminished lung volumes with worsened bilateral airspace disease, likely pneumonia. Recommend radiographic follow-up until clearing. 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 Consider PA and lateral radiographs or possibly CT follow-up. Electronically Signed By: Gerardo Garibay M.D. On: 07/09/2016 10:02
[2016-07-09 10:43] LABS: SEG NEUTROPHIL 87 % (45-76)
--- NOTE | 2016-07-09 11:03 | GENMEDPROG ---
Chief Complaint: Says he feels better but clinically appears worse. X-ray shows some clearing on the right but still extensive bilateral pneumonia. Says he has had some productive cough. Notes Reviewed: Yes Events from last night noted and discussed with Clinical Staff Current Medication List: Reviewed Currently: Reports: Cough, Wheezing, DANGELO, SOB. Denies: Nausea and Vomiting, Abdominal Pain, Chest Pain - Physical Examination Vital Signs and I&O: Last Vital Signs Temp 97.7 F 07/09/16 04:45 Pulse 73 07/09/16 04:45 Resp 20 07/09/16 04:45 BP 176/85 07/09/16 04:45 Pulse Ox 93 07/09/16 08:00 Oxygen Pulse Oxygen Saturation 93 O2 Device Nasal Cannula Oxygen Flow Rate 2 Fraction of Inspired Oxygen ( 30 FIO2) Intake & Output 07/06/16 07/07/16 07/08/16 07/09/16 23:59 23:59 23:59 23:59 Intake Total 205 1767 1087 220 Output Total 626 400 4689 1050 Balance -45 942 -638 -830 Patient's weight 76.793 kg 77.065 kg 76.521 kg 77.564 kg General: Alert, Oriented x3, Cooperative, Mild distress. negative: Well appearing (Chronically ill-appearing) HEENT: Normal, PERRLA, EOMI, Anicteric Sclera Neck: Non-tender, Full range of motion, Normal Trachea alignment, Normal inspection. negative: JVD Lymphatics: Normal (no adenopathy). negative: Adenopathy Respiratory: Accessory Muscle Use, Rales, Rhonchi, Tachypnea, Wheezes Cardiovascular: Regular rate and rhythm, No Gallops,Rubs/Murmurs GI: Normal bowel sounds, Soft, Non tender, No hepatospenomegaly Extremities/Musculoskeletal: Normal pulses. negative: Tenderness, Swelling, Edema Skin: Warm,Dry and Intact, No rashes, No breakdown Neurological: Normal Steady Gait, Normal speech, Strength at 5/5 X4 ext, Normal tone Psych/Mental Status: Appropriate, Normal Affect, Cooperative Lab/DI/Studies Reviewed: Laboratory Results - last 24 hr 07/08/16 07/08/16 07/08/16 12:03 16:34 20:15 WBC RBC Hgb Hct MCV MCH MCHC RDW Plt Count MPV Neut % (Auto) Lymph % (Auto) [place] % (Auto) Eos % (Auto) Baso % (Auto) Absolute Neuts (auto) Absolute Lymphs (auto) Seg Neuts % (Manual) Band Neutrophils % Lymphocytes % (Manual) Absolute Neutrophils Absolute Lymphocytes Toxic Granulation Platelet Estimate RBC Morphology PT INR Sodium Potassium Chloride Carbon Dioxide Anion Gap BUN Creatinine Estimated GFR (MDRD) Glucose POC Capillary Glucose 301 H 231 H 274 H Calculated Osmolality Calcium 07/09/16 07/09/16 07/09/16 05:23 07:11 07:11 WBC RBC Hgb Hct MCV MCH MCHC RDW Plt Count MPV Neut % (Auto) Lymph % (Auto) [place] % (Auto) Eos % (Auto) Baso % (Auto) Absolute Neuts (auto) Absolute Lymphs (auto) Seg Neuts % (Manual) Band Neutrophils % Lymphocytes % (Manual) Absolute Neutrophils Absolute Lymphocytes Toxic Granulation Platelet Estimate RBC Morphology PT 24.1 H INR 2.3 Sodium 146 Potassium 5.1 Chloride 100 Carbon Dioxide 37 H Anion Gap 14 BUN 36 H Creatinine 1.00 Estimated GFR (MDRD) > 60 Glucose 175 H POC Capillary Glucose 179 H Calculated Osmolality 293 H Calcium 9.0 07/09/16 07:11 WBC 16.7 H RBC 4.65 L Hgb 11.3 L Hct 35.6 L MCV 77 L MCH 24.4 L MCHC 31.8 L RDW 15.8 H Plt Count 264 MPV 7.4 Neut % (Auto) Cancelled Lymph % (Auto) Cancelled [place] % (Auto) Cancelled Eos % (Auto) Cancelled Baso % (Auto) Cancelled Absolute Neuts (auto) Cancelled Absolute Lymphs (auto) Cancelled Seg Neuts % (Manual) 87 H Band Neutrophils % 7 H Lymphocytes % (Manual) 6 L Absolute Neutrophils 15.70 H Absolute Lymphocytes 1.00 Toxic Granulation Tr Platelet Estimate Norm RBC Morphology 1+ poik PT INR Sodium Potassium Chloride Carbon Dioxide Anion Gap BUN Creatinine Estimated GFR (MDRD) Glucose POC Capillary Glucose Calculated Osmolality Calcium - Assessment (1) Respiratory failure Acute J96.90 - RESPIRATORY FAILURE, UNSP, UNSP W HYPOXIA OR HYPERCAPNIA Qualifiers: Chronicity: acute Respiratory failure complication: hypoxia and hypercapnia Qualified Code(s): J96.01 - Acute respiratory failure with hypoxia ; J96.02 - Acute respiratory failure with hypercapnia Comment/Plan: Worse today. Still very congested and symptomatic. X-ray maybe a little bit of improvement but still extensive bilateral pneumonia. Given positive MRSA screen and very poor progress to date will add vancomycin (2) Sepsis Acute A41.9 - SEPSIS, UNSPECIFIED ORGANISM Qualifiers: Sepsis type: sepsis due to unspecified organism Qualified Code(s): A41.9 - Sepsis, unspecified organism Comment/Plan: Vitals are stabilizing but he looks worse. Continue IV fluids, IV antibiotics, nebulizer treatments and pulmonary toilet. Adding vancomycin (3) Bilateral pneumonia Acute J18.9 - PNEUMONIA, UNSPECIFIED ORGANISM Qualifiers: Pneumonia type: due to unspecified organism Lung location: unspecified part of lung Qualified Code(s): J18.9 - Pneumonia, unspecified organism Comment/Plan: Looks worse today. Chest x-ray with persistent severe bilateral infiltrates. Adding vancomycin. (4) COPD exacerbation Acute J44.1 - CHRONIC OBSTRUCTIVE PULMONARY DISEASE W (ACUTE) EXACERBATION Comment/Plan: Moderate wheezing and shortness of breath. IV steroids, nebulizer treatments pulmonary toilet (5) Atrial fibrillation Chronic I48.91 - UNSPECIFIED ATRIAL FIBRILLATION Qualifiers: Atrial fibrillation type: chronic Qualified Code(s): I48.2 - Chronic atrial fibrillation Comment/Plan: Some tachycardia currently likely due to acute respiratory illness. INR 2.3. DC Lovenox. Case Care Discussed with: Patient, Nursing Staff, Physical Therapy, Resource Management, Respiratory Therapy, Fire Truck Driver Total Time: 50 minutes Critical Care: Yes
[2016-07-09] MEDS: NS 1,000 ML IV SCH (11:14)
[2016-07-09] MEDS: FERROUS SULFATE 324 MG TAB PO SCH (11:16)
[2016-07-09] MEDS: VITAMINS, MULTIPLE CAP PO SCH (11:18)
[2016-07-09] MEDS: This patient is receiving warfarin therapy SCH (16:17)
[2016-07-09] MEDS: WARFARIN 5 MG TAB PO SCH (16:17)
[2016-07-09] MEDS: AZITHROMYCIN 500 MG in D5W 250 ML IV SCH (16:18)
[2016-07-09] MEDS: BISACODYL 5 MG TAB PO PRN (18:00)
[2016-07-09] MEDS: LORAZEPAM 2 MG/ML VIAL IV PRN (18:48)
[2016-07-09] MEDS: CEFTRIAXONE 1 GM in D5W 100 ML IV SCH (19:51)
[2016-07-09] MEDS: ATORVASTATIN 20 MG TAB PO SCH (19:56)
[2016-07-09] MEDS: AMITRIPTYLINE 50 MG TAB PO SCH (19:59)
[2016-07-09] MEDS: LATANOPROST 0.005% OPHTH SOLN 2.5 ML OU SCH (20:00)
[2016-07-10] MEDS: Albuterol/Ipratropium Neb 3 ML NEB NEB SCH ×4 (01:26→20:22)
[2016-07-10] MEDS: NS 1,000 ML IV SCH ×3 (02:03→15:42)
[2016-07-10 03:50] LABS: ALLEN'S TEST PASS; BEb 9.1 (+/- 2); TCO2 40.2 MMOL/L (23-27)
[2016-07-10 03:52] LABS: ABG Draw Site Right Radial; ABG Draw Tech BKL
[2016-07-10] MEDS: METHYLPREDNISOLONE 125 MG/2 ML VIAL IV SCH ×3 (04:54→20:38)
[2016-07-10] MEDS: METOCLOPRAMIDE 10 MG TAB PO SCH ×3 (04:56→17:28)
[2016-07-10] MEDS: PANTOPRAZOLE 40 MG TAB PO SCH (04:56)
[2016-07-10] MEDS: REGULAR INSULIN 100 UNITS/ML - 3 ML VIAL SQ SCH ×5 (05:52→21:00)
[2016-07-10 07:27] LABS: MPV 7.3 fL (7.4-10.4); PT-INR 2.2
[2016-07-10 07:33] LABS: BLOOD UREA NITROGEN 29 MG/DL (9-20); CALCIUM 8.3 MG/DL (8.4-10.2); CALCULATED OSMOLALITY 283 MOs/Kg (270-290); CHLORIDE 98 mEq/L (98-107); GLUCOSE 203 MG/DL (70-99); SODIUM LEVEL 141 mEq/L (137-146)
[2016-07-10 08:23] LABS: SEG NEUTROPHIL 92 % (45-76)
[2016-07-10] MEDS: Aluminum;Magnesium;Simethicone 30 ML UDC PO SCH ×4 (08:28→21:01)
[2016-07-10] MEDS: Docusate Sodium 100 MG CAP PO SCH ×2 (08:29→20:57)
[2016-07-10] MEDS: CARVEDILOL 6.25 MG TAB PO SCH ×2 (08:29→20:58)
[2016-07-10] MEDS: FUROSEMIDE 20 MG TAB PO SCH (08:29)
[2016-07-10] MEDS: ARTIFICIAL TEARS OPH SOLN 15 ML OU SCH ×2 (08:29→20:57)
[2016-07-10] MEDS: BRIMONIDINE 0.1% OPHTH SOLN 5 ML OU SCH ×2 (08:29→20:55)
[2016-07-10] MEDS: NACL 0.65% NASAL 45 ML BOTTLE NAS SCH ×2 (08:29→21:02)
[2016-07-10] MEDS: GUAIFENESIN 600 MG LA TAB PO SCH ×2 (08:29→21:02)
[2016-07-10] MEDS: DORZOLAMIDE/TIMOLOL OPHTH SOLN 10 ML OU SCH ×2 (08:31→20:59)
[2016-07-10] MEDS: FERROUS SULFATE 324 MG TAB PO SCH (11:47)
[2016-07-10] MEDS: VITAMINS, MULTIPLE CAP PO SCH (11:47)
--- NOTE | 2016-07-10 14:39 | GENMEDPROG ---
Chief Complaint: Less distress and feels a little better today. Unfortunately more hypercapnic. Oxygenation remains poor. X-rays have shown persistent bilateral infiltrates. Notes Reviewed: Yes Events from last night noted and discussed with Clinical Staff Current Medication List: Reviewed Currently: Reports: Cough, Wheezing, DANGELO, SOB. Denies: Nausea and Vomiting, Abdominal Pain, Chest Pain - Physical Examination Vital Signs and I&O: Last Vital Signs Temp 98.1 F 07/10/16 05:46 Pulse 74 07/10/16 05:46 Resp 20 07/10/16 05:46 BP 170/88 07/10/16 05:46 Pulse Ox 95 07/10/16 09:07 Oxygen Pulse Oxygen Saturation 95 O2 Device Nasal Cannula Oxygen Flow Rate 2 Fraction of Inspired Oxygen ( 30 FIO2) Intake & Output 07/07/16 07/08/16 07/09/16 07/10/16 23:59 23:59 23:59 23:59 Intake Total 1767 1087 1999 1032 Output Total 825 1725 2350 1575 Balance 942 -638 -351 -543 Patient's weight 77.065 kg 76.521 kg 77.564 kg 78.613 kg General: Alert, Oriented x3, Cooperative, Mild distress. negative: Well appearing (Chronically ill-appearing) HEENT: Normal, PERRLA, EOMI, Anicteric Sclera Neck: Non-tender, Full range of motion, Normal Trachea alignment, Normal inspection. negative: JVD Lymphatics: Normal (no adenopathy). negative: Adenopathy Respiratory: Accessory Muscle Use, Rales, Rhonchi, Tachypnea, Wheezes Cardiovascular: Regular rate and rhythm, No Gallops,Rubs/Murmurs GI: Normal bowel sounds, Soft, Non tender, No hepatospenomegaly Extremities/Musculoskeletal: Normal pulses. negative: Tenderness, Swelling, Edema Skin: Warm,Dry and Intact, No rashes, No breakdown Neurological: Normal Steady Gait, Normal speech, Strength at 5/5 X4 ext, Normal tone Psych/Mental Status: Appropriate, Normal Affect, Cooperative Lab/DI/Studies Reviewed: Laboratory Results - last 24 hr 07/09/16 07/09/16 07/10/16 16:10 20:32 03:45 WBC RBC Hgb Hct MCV MCH MCHC RDW Plt Count MPV Neut % (Auto) Lymph % (Auto) [place] % (Auto) Eos % (Auto) Baso % (Auto) Absolute Neuts (auto) Absolute Lymphs (auto) Seg Neuts % (Manual) Band Neutrophils % Lymphocytes % (Manual) Absolute Neutrophils Absolute Lymphocytes Platelet Estimate RBC Morphology PT INR Puncture Site Right radial pH 7.330 L pCO2 72.0 H* pO2 60.0 L HCO3 38.0 H Total CO2 40.2 H Base Excess 9.1 H FiO2 % 3 lpm Specimen Drawn By Bkl Sodium Potassium Chloride Carbon Dioxide Anion Gap BUN Creatinine Estimated GFR (MDRD) Glucose POC Capillary Glucose 328 H 248 H Calculated Osmolality Calcium 07/10/16 07/10/16 07/10/16 05:15 06:30 06:30 WBC RBC Hgb Hct MCV MCH MCHC RDW Plt Count MPV Neut % (Auto) Lymph % (Auto) [place] % (Auto) Eos % (Auto) Baso % (Auto) Absolute Neuts (auto) Absolute Lymphs (auto) Seg Neuts % (Manual) Band Neutrophils % Lymphocytes % (Manual) Absolute Neutrophils Absolute Lymphocytes Platelet Estimate RBC Morphology PT 23.3 H INR 2.2 Puncture Site pH pCO2 pO2 HCO3 Total CO2 Base Excess FiO2 % Specimen Drawn By Sodium 141 Potassium 4.1 Chloride 98 Carbon Dioxide 37 H Anion Gap 10 BUN 29 H Creatinine 0.80 Estimated GFR (MDRD) > 60 Glucose 203 H POC Capillary Glucose 183 H Calculated Osmolality 283 Calcium 8.3 L 07/10/16 07/10/16 06:30 11:17 WBC 15.0 H RBC 4.64 L Hgb 11.4 L Hct 35.8 L MCV 77 L MCH 24.5 L MCHC 31.7 L RDW 15.8 H Plt Count 260 MPV 7.3 L Neut % (Auto) Cancelled Lymph % (Auto) Cancelled [place] % (Auto) Cancelled Eos % (Auto) Cancelled Baso % (Auto) Cancelled Absolute Neuts (auto) Cancelled Absolute Lymphs (auto) Cancelled Seg Neuts % (Manual) 92 H Band Neutrophils % 3 Lymphocytes % (Manual) 5 L Absolute Neutrophils 14.25 H Absolute Lymphocytes 0.75 Platelet Estimate Norm RBC Morphology Reviewed this admiss PT INR Puncture Site pH pCO2 pO2 HCO3 Total CO2 Base Excess FiO2 % Specimen Drawn By Sodium Potassium Chloride Carbon Dioxide Anion Gap BUN Creatinine Estimated GFR (MDRD) Glucose POC Capillary Glucose 210 H Calculated Osmolality Calcium - Assessment (1) Respiratory failure Acute J96.90 - RESPIRATORY FAILURE, UNSP, UNSP W HYPOXIA OR HYPERCAPNIA Qualifiers: Chronicity: acute Respiratory failure complication: hypoxia and hypercapnia Qualified Code(s): J96.01 - Acute respiratory failure with hypoxia ; J96.02 - Acute respiratory failure with hypercapnia Comment/Plan: Remains acutely and critically ill. Still significantly hypercapnic and hypoxic. X-ray with bilateral pneumonia. Currently on vancomycin, Rocephin, azithromycin. May need to re-initiate BiPAP. (2) Sepsis Acute A41.9 - SEPSIS, UNSPECIFIED ORGANISM Qualifiers: Sepsis type: sepsis due to unspecified organism Qualified Code(s): A41.9 - Sepsis, unspecified organism Comment/Plan: Vital stabilizing however remains acutely and severely ill. He is hypoxic, hypercapnic and congested. Continue antibiotics and aggressive pulmonary toilet. (3) Bilateral pneumonia Acute J18.9 - PNEUMONIA, UNSPECIFIED ORGANISM Qualifiers: Pneumonia type: due to unspecified organism Lung location: unspecified part of lung Qualified Code(s): J18.9 - Pneumonia, unspecified organism Comment/Plan: Looks worse today. Chest x-ray with persistent severe bilateral infiltrates. Added vancomycin. (4) COPD exacerbation Acute J44.1 - CHRONIC OBSTRUCTIVE PULMONARY DISEASE W (ACUTE) EXACERBATION Comment/Plan: Moderate wheezing and shortness of breath. IV steroids, nebulizer treatments pulmonary toilet (5) Atrial fibrillation Chronic I48.91 - UNSPECIFIED ATRIAL FIBRILLATION Qualifiers: Atrial fibrillation type: chronic Qualified Code(s): I48.2 - Chronic atrial fibrillation Comment/Plan: Some tachycardia currently likely due to acute respiratory illness. INR 2.2. DC Lovenox. Case Care Discussed with: Patient, Nursing Staff, Physical Therapy, Resource Management, Respiratory Therapy, Merchandise Shopper
[2016-07-10] MEDS: This patient is receiving warfarin therapy SCH (17:28)
[2016-07-10] MEDS: AZITHROMYCIN 500 MG in D5W 250 ML IV SCH (17:28)
[2016-07-10] MEDS: WARFARIN 4 MG TAB PO SCH (17:28)
[2016-07-10] MEDS: CEFTRIAXONE 1 GM in D5W 100 ML IV SCH (20:38)
[2016-07-10] MEDS: LORAZEPAM 2 MG/ML VIAL IV PRN (20:43)
[2016-07-10] MEDS: AMITRIPTYLINE 50 MG TAB PO SCH (21:00)
[2016-07-10] MEDS: ATORVASTATIN 20 MG TAB PO SCH (21:01)
[2016-07-10] MEDS: LATANOPROST 0.005% OPHTH SOLN 2.5 ML OU SCH (21:03)
[2016-07-11] MEDS: Albuterol/Ipratropium Neb 3 ML NEB NEB SCH ×4 (02:00→21:01)
[2016-07-11 04:29] LABS: ALLEN'S TEST PASS; BEb 10.6 (+/- 2); TCO2 40.8 MMOL/L (23-27)
[2016-07-11 04:30] LABS: ABG Draw Site Right Radial
[2016-07-11] MEDS: METHYLPREDNISOLONE 125 MG/2 ML VIAL IV SCH ×3 (05:24→21:44)
[2016-07-11] MEDS: PANTOPRAZOLE 40 MG TAB PO SCH (05:51)
[2016-07-11] MEDS: METOCLOPRAMIDE 10 MG TAB PO SCH ×3 (05:51→17:09)
[2016-07-11] MEDS: REGULAR INSULIN 100 UNITS/ML - 3 ML VIAL SQ SCH ×4 (05:52→21:51)
[2016-07-11] MEDS: hydrALAZINE 20 MG/ML VIAL IV PRN ×3 (05:56→22:18)
[2016-07-11 06:20] LABS: MPV 7.4 fL (7.4-10.4)
[2016-07-11 06:25] LABS: PT-INR 3.1
[2016-07-11 06:40] LABS: BLOOD UREA NITROGEN 25 MG/DL (9-20); CALC CORRECTED 9.5 MG/DL (8.4-10.2); CALCIUM 8.5 MG/DL (8.4-10.2); CALCULATED OSMOLALITY 277 MOs/Kg (270-290); CHLORIDE 96 mEq/L (98-107); GLUCOSE 188 MG/DL (70-99); SODIUM LEVEL 139 mEq/L (137-146); TOTAL PROTEIN 5.8 G/DL (6.3-8.2)
[2016-07-11 07:14] LABS: SEG NEUTROPHIL 76 % (45-76)
--- NOTE | 2016-07-11 07:40 | DIRPT ---
CLINICAL DATA: Pneumonia. EXAM: PORTABLE CHEST 1 VIEW COMPARISON: 07/09/2016. FINDINGS: Mediastinum and hilar structures are stable. Heart size stable. Low lung volumes with persistent atelectasis and or infiltrates. Small bilateral effusions and/or pleural scarring. Pleural calcification present bilaterally which again could be related to asbestosis. No pneumothorax . IMPRESSION: 1. Persistent low lung volumes with bibasilar atelectasis and/or infiltrates. No interim improvement. 2. Small bilateral effusions versus pleural scarring. 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 3. Stable mild cardiomegaly. Electronically Signed By: Harmeet Marcano On: 07/11/2016 07:37
[2016-07-11] MEDS: Aluminum;Magnesium;Simethicone 30 ML UDC PO SCH ×4 (08:01→21:51)
[2016-07-11] MEDS: DORZOLAMIDE/TIMOLOL OPHTH SOLN 10 ML OU SCH ×2 (08:02→21:55)
[2016-07-11] MEDS: BRIMONIDINE 0.1% OPHTH SOLN 5 ML OU SCH ×2 (08:02→21:45)
[2016-07-11] MEDS: GUAIFENESIN 600 MG LA TAB PO SCH ×2 (08:02→21:52)
[2016-07-11] MEDS: Docusate Sodium 100 MG CAP PO SCH ×2 (08:02→21:47)
[2016-07-11] MEDS: NACL 0.65% NASAL 45 ML BOTTLE NAS SCH ×2 (08:02→21:49)
[2016-07-11] MEDS: FUROSEMIDE 20 MG TAB PO SCH (08:02)
[2016-07-11] MEDS: CARVEDILOL 6.25 MG TAB PO SCH ×2 (08:02→21:50)
[2016-07-11] MEDS: ARTIFICIAL TEARS OPH SOLN 15 ML OU SCH ×2 (08:02→21:47)
[2016-07-11] MEDS: NS 1,000 ML IV SCH ×3 (08:03→22:07)
--- NOTE | 2016-07-11 10:47 | GENMEDPROG ---
Chief Complaint: Remains acutely ill. Very weak and fatigued appearing still hypoxic and hypercapnic. Chest x-ray with no significant improvement Notes Reviewed: Yes Events from last night noted and discussed with Clinical Staff Current Medication List: Reviewed Currently: Reports: Cough, Wheezing, DANGELO, SOB. Denies: Nausea and Vomiting, Abdominal Pain, Chest Pain - Physical Examination Vital Signs and I&O: Last Vital Signs Temp 97.6 F 07/11/16 06:00 Pulse 71 07/11/16 09:30 Resp 18 07/11/16 09:30 BP 178/92 07/11/16 09:30 Pulse Ox 93 07/11/16 09:30 Oxygen Pulse Oxygen Saturation 93 O2 Device Nasal Cannula Oxygen Flow Rate 3 Fraction of Inspired Oxygen ( 30 FIO2) Intake & Output 07/08/16 07/09/16 07/10/16 07/11/16 23:59 23:59 23:59 23:59 Intake Total 1087 1998 2808 1870 Output Total 1728 4086 1321 1950 Balance -638 -351 -667 -80 Patient's weight 76.521 kg 77.564 kg 78.613 kg 81.817 kg General: Alert, Oriented x3, Cooperative, Mild distress. negative: Well appearing (Chronically ill-appearing) HEENT: Normal, PERRLA, EOMI, Anicteric Sclera Neck: Non-tender, Full range of motion, Normal Trachea alignment, Normal inspection. negative: JVD Lymphatics: Normal (no adenopathy). negative: Adenopathy Respiratory: Accessory Muscle Use, Rales, Rhonchi, Tachypnea, Wheezes Cardiovascular: Regular rate and rhythm, No Gallops,Rubs/Murmurs GI: Normal bowel sounds, Soft, Non tender, No hepatospenomegaly Extremities/Musculoskeletal: Normal pulses. negative: Tenderness, Swelling, Edema Skin: Warm,Dry and Intact, No rashes, No breakdown Neurological: Normal Steady Gait, Normal speech, Strength at 5/5 X4 ext, Normal tone Psych/Mental Status: Appropriate, Normal Affect, Cooperative Lab/DI/Studies Reviewed: Laboratory Results - last 24 hr 07/10/16 07/10/16 07/11/16 11:17 16:54 04:20 WBC RBC Hgb Hct MCV MCH MCHC RDW Plt Count MPV Neut % (Auto) Lymph % (Auto) Overton % (Auto) Eos % (Auto) Baso % (Auto) Absolute Neuts (auto) Absolute Lymphs (auto) Seg Neuts % (Manual) Band Neutrophils % Lymphocytes % (Manual) Monocytes % (Manual) Absolute Neutrophils Absolute Lymphocytes Platelet Estimate RBC Morphology PT INR Puncture Site Right radial pH 7.370 pCO2 67.0 H pO2 67.0 L HCO3 38.7 H Total CO2 40.8 H Base Excess 10.6 H FiO2 % 2.5l nc Specimen Drawn By Baras Sodium Potassium Chloride Carbon Dioxide Anion Gap BUN Creatinine Estimated GFR (MDRD) Glucose POC Capillary Glucose 210 H 292 H Calculated Osmolality Calcium Corrected Calcium Total Bilirubin AST ALT Alkaline Phosphatase Total Protein Albumin 07/11/16 07/11/16 07/11/16 05:17 05:50 05:50 WBC RBC Hgb Hct MCV MCH MCHC RDW Plt Count MPV Neut % (Auto) Lymph % (Auto) Overton % (Auto) Eos % (Auto) Baso % (Auto) Absolute Neuts (auto) Absolute Lymphs (auto) Seg Neuts % (Manual) Band Neutrophils % Lymphocytes % (Manual) Monocytes % (Manual) Absolute Neutrophils Absolute Lymphocytes Platelet Estimate RBC Morphology PT 31.9 H INR 3.1 Puncture Site pH pCO2 pO2 HCO3 Total CO2 Base Excess FiO2 % Specimen Drawn By Sodium 139 Potassium 4.2 Chloride 96 L Carbon Dioxide 36 H Anion Gap 11 BUN 25 H Creatinine 0.80 Estimated GFR (MDRD) > 60 Glucose 188 H POC Capillary Glucose 183 H Calculated Osmolality 277 Calcium 8.5 Corrected Calcium 9.5 Total Bilirubin 0.3 AST 19 ALT 29 Alkaline Phosphatase 85 Total Protein 5.8 L Albumin 3.0 L 07/11/16 05:50 WBC 17.0 H RBC 4.99 Hgb 12.0 L Hct 38.5 L MCV 77 L MCH 24.1 L MCHC 31.2 L RDW 16.3 H Plt Count 266 MPV 7.4 Neut % (Auto) Cancelled Lymph % (Auto) Cancelled Overton % (Auto) Cancelled Eos % (Auto) Cancelled Baso % (Auto) Cancelled Absolute Neuts (auto) Cancelled Absolute Lymphs (auto) Cancelled Seg Neuts % (Manual) 76 Band Neutrophils % 8 H Lymphocytes % (Manual) 9 L Monocytes % (Manual) 7 Absolute Neutrophils 14.28 H Absolute Lymphocytes 1.53 Platelet Estimate Norm RBC Morphology Reviewed this admiss PT INR Puncture Site pH pCO2 pO2 HCO3 Total CO2 Base Excess FiO2 % Specimen Drawn By Sodium Potassium Chloride Carbon Dioxide Anion Gap BUN Creatinine Estimated GFR (MDRD) Glucose POC Capillary Glucose Calculated Osmolality Calcium Corrected Calcium Total Bilirubin AST ALT Alkaline Phosphatase Total Protein Albumin - Assessment (1) Respiratory failure Acute J96.90 - RESPIRATORY FAILURE, UNSP, UNSP W HYPOXIA OR HYPERCAPNIA Qualifiers: Chronicity: acute Respiratory failure complication: hypoxia and hypercapnia Qualified Code(s): J96.01 - Acute respiratory failure with hypoxia ; J96.02 - Acute respiratory failure with hypercapnia Comment/Plan: Very little improvement. Remains acutely and critically ill. On vanc, Rocephin and azithromycin. Very weak and fatigued appearing but he is willing to try and sit up in a chair (2) Sepsis Acute A41.9 - SEPSIS, UNSPECIFIED ORGANISM Qualifiers: Sepsis type: sepsis due to unspecified organism Qualified Code(s): A41.9 - Sepsis, unspecified organism Comment/Plan: Vital stabilizing however remains acutely and severely ill. He is hypoxic, hypercapnic and congested. Continue antibiotics and aggressive pulmonary toilet. (3) Bilateral pneumonia Acute J18.9 - PNEUMONIA, UNSPECIFIED ORGANISM Qualifiers: Pneumonia type: due to unspecified organism Lung location: unspecified part of lung Qualified Code(s): J18.9 - Pneumonia, unspecified organism Comment/Plan: Continues to appear acutely ill. Chest x-ray with persistent infiltrates. Continue current antibiotics. (4) COPD exacerbation Acute J44.1 - CHRONIC OBSTRUCTIVE PULMONARY DISEASE W (ACUTE) EXACERBATION Comment/Plan: Moderate wheezing and shortness of breath. IV steroids, nebulizer treatments pulmonary toilet (5) Atrial fibrillation Chronic I48.91 - UNSPECIFIED ATRIAL FIBRILLATION Qualifiers: Atrial fibrillation type: chronic Qualified Code(s): I48.2 - Chronic atrial fibrillation Comment/Plan: Some tachycardia currently likely due to acute respiratory illness. INR 3.1. DC Lovenox. Total Time: 50 minutes Critical Care: Yes
[2016-07-11] MEDS: FERROUS SULFATE 324 MG TAB PO SCH (11:34)
[2016-07-11] MEDS: VITAMINS, MULTIPLE CAP PO SCH (11:34)
[2016-07-11] MEDS: LORAZEPAM 2 MG/ML VIAL IV PRN (14:23)
[2016-07-11] MEDS: WARFARIN 5 MG TAB PO SCH (17:09)
[2016-07-11] MEDS: Levofloxacin 750 mg/150 ml D5W 750 MG/150 ML RTU IV SCH (17:09)
[2016-07-11] MEDS: This patient is receiving warfarin therapy SCH (17:09)
[2016-07-11] MEDS: CEFTRIAXONE 1 GM in D5W 100 ML IV SCH (21:44)
[2016-07-11] MEDS: LATANOPROST 0.005% OPHTH SOLN 2.5 ML OU SCH (21:50)
[2016-07-11] MEDS: AMITRIPTYLINE 50 MG TAB PO SCH (21:51)
[2016-07-11] MEDS: ATORVASTATIN 20 MG TAB PO SCH (21:51)
[2016-07-12] MEDS: LORAZEPAM 2 MG/ML VIAL IV PRN (01:09)
[2016-07-12] MEDS: Albuterol/Ipratropium Neb 3 ML NEB NEB SCH ×4 (02:17→20:25)
[2016-07-12] MEDS: METHYLPREDNISOLONE 125 MG/2 ML VIAL IV SCH ×3 (03:55→21:13)
[2016-07-12] MEDS: hydrALAZINE 20 MG/ML VIAL IV PRN (03:56)
[2016-07-12] MEDS: CARVEDILOL 6.25 MG TAB PO SCH ×2 (05:24→21:18)
[2016-07-12] MEDS: FUROSEMIDE 20 MG TAB PO SCH (05:24)
[2016-07-12] MEDS: METOCLOPRAMIDE 10 MG TAB PO SCH ×3 (05:27→16:02)
[2016-07-12] MEDS: PANTOPRAZOLE 40 MG TAB PO SCH (05:27)
[2016-07-12] MEDS: REGULAR INSULIN 100 UNITS/ML - 3 ML VIAL SQ SCH ×4 (05:27→21:22)
[2016-07-12 06:48] LABS: PT-INR 3.1
[2016-07-12] MEDS: Aluminum;Magnesium;Simethicone 30 ML UDC PO SCH ×4 (09:27→21:23)
[2016-07-12] MEDS: ARTIFICIAL TEARS OPH SOLN 15 ML OU SCH ×2 (09:28→21:21)
[2016-07-12] MEDS: GUAIFENESIN 600 MG LA TAB PO SCH ×2 (09:29→21:24)
[2016-07-12] MEDS: Docusate Sodium 100 MG CAP PO SCH ×2 (09:29→21:18)
[2016-07-12] MEDS: BRIMONIDINE 0.1% OPHTH SOLN 5 ML OU SCH ×2 (09:30→21:17)
[2016-07-12] MEDS: NACL 0.65% NASAL 45 ML BOTTLE NAS SCH ×2 (09:30→21:24)
[2016-07-12] MEDS: DORZOLAMIDE/TIMOLOL OPHTH SOLN 10 ML OU SCH ×2 (09:30→21:26)
[2016-07-12] MEDS: NS 1,000 ML IV SCH ×2 (09:33→10:03)
[2016-07-12] MEDS: VITAMINS, MULTIPLE CAP PO SCH (11:53)
[2016-07-12] MEDS: FERROUS SULFATE 324 MG TAB PO SCH (11:53)
[2016-07-12] MEDS ORDERED: Medication Special Instructions SCH (16:00)
[2016-07-12] MEDS: WARFARIN 4 MG TAB PO SCH ×2 (16:01→16:11)
[2016-07-12] MEDS: Levofloxacin 750 mg/150 ml D5W 750 MG/150 ML RTU IV SCH (16:01)
[2016-07-12] MEDS: This patient is receiving warfarin therapy SCH (16:03)
--- NOTE | 2016-07-12 18:23 | GENMEDPROG ---
Subjective Note: Patient in bed responsive follows commands poorly interactive.. Still acutely ill and toxic-appearing. Coughing producing fair amount thick sputum. P.o. intake poor. Denies any pains. Current Medication List: Reviewed Currently: Reports: Cough, Wheezing, DANGELO, SOB, Sputum, Tobacco Use/Hx, Reflux Sx. Denies: Nausea and Vomiting, Abdominal Pain, Chest Pain DVT Prophylaxis: Yes - Physical Examination Vital Signs and I&O: Last Vital Signs Temp 98.1 F 07/12/16 14:59 Pulse 96 07/12/16 14:59 Resp 18 07/12/16 14:59 BP 169/91 07/12/16 14:59 Pulse Ox 95 07/12/16 14:59 Oxygen Pulse Oxygen Saturation 95 O2 Device Nasal Cannula Oxygen Flow Rate 2 Fraction of Inspired Oxygen ( 30 FIO2) Intake & Output 07/09/16 07/10/16 07/11/16 07/12/16 23:59 23:59 23:59 23:59 Intake Total 1998 4293 6950 561 Output Total 6 3024 0317 1755 Balance -550 -667 -855 -1184 Patient's weight 77.564 kg 78.613 kg 81.817 kg 80.881 kg General: Alert, Oriented x3, Cooperative, Mild distress. negative: Well appearing (Chronically ill-appearing) HEENT: Normal, PERRLA, EOMI, Anicteric Sclera Neck: Non-tender, Full range of motion, Normal Trachea alignment, Normal inspection, Limited range of motion. negative: JVD Lymphatics: Normal (no adenopathy). negative: Adenopathy Respiratory: Accessory Muscle Use, Rales, Rhonchi, Wheezes Cardiovascular: Regular rate and rhythm, Normal S1, No Gallops,Rubs/Murmurs, Normal S2, Murmurs GI: Normal bowel sounds, Soft, Non tender, No hepatospenomegaly Extremities/Musculoskeletal: Normal pulses. negative: Tenderness, Swelling, Edema Skin: Warm,Dry and Intact, No rashes, No breakdown Neurological: Normal Steady Gait, Normal speech, Strength at 5/5 X4 ext, Normal tone Psych/Mental Status: Appropriate, Normal Affect, Cooperative, Anxious Lab/DI/Studies Reviewed: Last Vital Signs Temp 98.1 F 07/12/16 14:59 Pulse 96 07/12/16 14:59 Resp 18 07/12/16 14:59 BP 169/91 07/12/16 14:59 Pulse Ox 95 07/12/16 14:59 07/11/16 05:50 07/11/16 05:50 Abnormal Lab Results 07/11/16 07/12/16 07/12/16 20:13 05:11 05:20 PT 32.7 H POC Capillary Glucose 222 H 161 H 07/12/16 07/12/16 11:23 17:08 PT POC Capillary Glucose 187 H 301 H - Assessment (1) Bilateral pneumonia Acute J18.9 - PNEUMONIA, UNSPECIFIED ORGANISM Qualifiers: Pneumonia type: due to unspecified organism Lung location: unspecified part of lung Qualified Code(s): J18.9 - Pneumonia, unspecified organism Comment/Plan: Continue O2 nebs and pulmonary toilet. Monitor pulmonary status. Slow improvement on maximal therapy. (2) COPD exacerbation Acute J44.1 - CHRONIC OBSTRUCTIVE PULMONARY DISEASE W (ACUTE) EXACERBATION Comment/Plan: Continue O2 nebs and pulmonary toilet. Continue IV steroids. (3) Atrial fibrillation Chronic I48.91 - UNSPECIFIED ATRIAL FIBRILLATION Qualifiers: Atrial fibrillation type: chronic Qualified Code(s): I48.2 - Chronic atrial fibrillation Comment/Plan: Rate controlled continue anticoagulation (4) Sepsis Acute A41.9 - SEPSIS, UNSPECIFIED ORGANISM Qualifiers: Sepsis type: sepsis due to unspecified organism Qualified Code(s): A41.9 - Sepsis, unspecified organism Comment/Plan: Vital stabilizing however remains acutely and severely ill. He is hypoxic, hypercapnic and congested. Continue antibiotics and aggressive pulmonary toilet. (5) Dyslipidemia Acute E78.5 - HYPERLIPIDEMIA, UNSPECIFIED Comment/Plan: Continue Lipitor (6) GERD (gastroesophageal reflux disease) Acute K21.9 - GASTRO-ESOPHAGEAL REFLUX DISEASE WITHOUT ESOPHAGITIS Qualifiers: Esophagitis presence: without esophagitis Qualified Code(s): K21.9 - Gastro -esophageal reflux disease without esophagitis Comment/Plan: On PPI Case Care Discussed with: Patient, Nursing Staff, Drying Room Attendant Education/Counseling Given To: Patient Education/Counseling Given Regarding: Diagnosis, Treatment, Prognosis, Follow Up Total Time: 50 min ,. Critical Care: No Code: 21074 (12+)
[2016-07-12] MEDS: CEFTRIAXONE 1 GM in D5W 100 ML IV SCH (21:12)
[2016-07-12] MEDS: AMITRIPTYLINE 50 MG TAB PO SCH (21:22)
[2016-07-12] MEDS: ATORVASTATIN 20 MG TAB PO SCH (21:22)
[2016-07-12] MEDS: LATANOPROST 0.005% OPHTH SOLN 2.5 ML OU SCH (21:33)
[2016-07-13] MEDS: NS 1,000 ML IV SCH ×3 (01:23→14:20)
[2016-07-13] MEDS: Albuterol/Ipratropium Neb 3 ML NEB NEB SCH ×4 (02:13→19:49)
[2016-07-13] MEDS: METHYLPREDNISOLONE 125 MG/2 ML VIAL IV SCH ×2 (05:18→11:29)
[2016-07-13] MEDS: PANTOPRAZOLE 40 MG TAB PO SCH (05:18)
[2016-07-13] MEDS: BISACODYL 5 MG TAB PO PRN (05:19)
[2016-07-13] MEDS: METOCLOPRAMIDE 10 MG TAB PO SCH ×3 (05:22→17:44)
[2016-07-13 05:38] LABS: MPV 7.2 fL (7.4-10.4)
[2016-07-13] MEDS: REGULAR INSULIN 100 UNITS/ML - 3 ML VIAL SQ SCH ×4 (05:41→21:14)
[2016-07-13 05:53] LABS: BLOOD UREA NITROGEN 27 MG/DL (9-20); CALCIUM 8.4 MG/DL (8.4-10.2); CALCULATED OSMOLALITY 279 MOs/Kg (270-290); CHLORIDE 99 mEq/L (98-107); GLUCOSE 187 MG/DL (70-99); SODIUM LEVEL 140 mEq/L (137-146)
[2016-07-13 06:01] LABS: PT-INR 2.8
[2016-07-13] MEDS: Aluminum;Magnesium;Simethicone 30 ML UDC PO SCH ×4 (08:22→21:09)
[2016-07-13] MEDS: DORZOLAMIDE/TIMOLOL OPHTH SOLN 10 ML OU SCH ×2 (08:23→21:13)
[2016-07-13] MEDS: ARTIFICIAL TEARS OPH SOLN 15 ML OU SCH ×2 (08:23→21:17)
[2016-07-13] MEDS: GUAIFENESIN 600 MG LA TAB PO SCH ×2 (08:23→21:09)
[2016-07-13] MEDS: NACL 0.65% NASAL 45 ML BOTTLE NAS SCH ×2 (08:23→21:16)
[2016-07-13] MEDS: CARVEDILOL 6.25 MG TAB PO SCH ×2 (08:24→21:09)
[2016-07-13] MEDS: FUROSEMIDE 20 MG TAB PO SCH (08:24)
[2016-07-13] MEDS: Docusate Sodium 100 MG CAP PO SCH ×2 (08:24→21:09)
[2016-07-13] MEDS: BRIMONIDINE 0.1% OPHTH SOLN 5 ML OU SCH ×2 (08:25→21:08)
[2016-07-13] MEDS: VITAMINS, MULTIPLE CAP PO SCH (11:29)
[2016-07-13] MEDS: FERROUS SULFATE 324 MG TAB PO SCH (11:29)
[2016-07-13] MEDS ORDERED: Medication Special Instructions SCH (14:00)
[2016-07-13] MEDS ORDERED: BISACODYL 10 MG SUPP PR ONE (14:30)
[2016-07-13] MEDS: Levofloxacin 750 mg/150 ml D5W 750 MG/150 ML RTU IV SCH (16:01)
[2016-07-13] MEDS: This patient is receiving warfarin therapy SCH (16:57)
[2016-07-13] MEDS: WARFARIN 5 MG TAB PO SCH (17:44)
[2016-07-13] MEDS ORDERED: FUROSEMIDE 40 MG TAB PO SCH (18:56)
--- NOTE | 2016-07-13 18:57 | GENMEDPROG ---
Subjective Note: Patient in bed more responsive and interactive today. Breathing much improved still coughing producing fair amount thick sputum. No hemoptysis Notes Reviewed: Yes Events from last night noted and discussed with Clinical Staff Current Medication List: Reviewed Currently: Reports: Cough, Wheezing, DANGELO, SOB, Sputum, Tobacco Use/Hx, Reflux Sx. Denies: Nausea and Vomiting, Abdominal Pain, Chest Pain DVT Prophylaxis: Yes - Physical Examination Vital Signs and I&O: Last Vital Signs Temp 97.7 F 07/13/16 13:18 Pulse 85 07/13/16 13:18 Resp 20 07/13/16 13:18 BP 150/77 07/13/16 13:18 Pulse Ox 94 07/13/16 13:18 Oxygen Pulse Oxygen Saturation 94 O2 Device Nasal Cannula Oxygen Flow Rate 2 Fraction of Inspired Oxygen ( 30 FIO2) Intake & Output 07/10/16 07/11/16 07/12/16 07/13/16 23:59 23:59 23:59 23:59 Intake Total 2808 3445 566 3243 Output Total 3475 4300 2100 2300 Balance -053 -855 -1534 943 Patient's weight 78.613 kg 81.817 kg 80.881 kg 80.541 kg General: Alert, Oriented x3, Cooperative, Mild distress. negative: Well appearing (Chronically ill-appearing) HEENT: Normal, PERRLA, EOMI, Anicteric Sclera Neck: Non-tender, Full range of motion, Normal Trachea alignment, Normal inspection, Limited range of motion. negative: JVD Lymphatics: Normal (no adenopathy). negative: Adenopathy Respiratory: Accessory Muscle Use, Rales, Rhonchi, Wheezes Cardiovascular: Regular rate and rhythm, Normal S1, No Gallops,Rubs/Murmurs, Normal S2, Murmurs GI: Normal bowel sounds, Soft, Non tender, No hepatospenomegaly Extremities/Musculoskeletal: Normal pulses. negative: Tenderness, Swelling, Edema Skin: Warm,Dry and Intact, No rashes, No breakdown Neurological: Normal Steady Gait, Normal speech, Strength at 5/5 X4 ext, Normal tone Psych/Mental Status: Appropriate, Normal Affect, Cooperative, Anxious Lab/DI/Studies Reviewed: Allergies No Known Allergies Allergy (Verified 07/06/16 18:17) 07/13/16 05:00 07/13/16 05:00 Last Vital Signs Temp 97.7 F 07/13/16 13:18 Pulse 85 07/13/16 13:18 Resp 20 07/13/16 13:18 BP 150/77 07/13/16 13:18 Pulse Ox 94 07/13/16 13:18 - Assessment (1) Bilateral pneumonia Acute J18.9 - PNEUMONIA, UNSPECIFIED ORGANISM Qualifiers: Pneumonia type: due to unspecified organism Lung location: unspecified part of lung Qualified Code(s): J18.9 - Pneumonia, unspecified organism Comment/Plan: Continue O2 nebs and pulmonary toilet. Monitor pulmonary status. Slow improvement on maximal therapy. (2) COPD exacerbation Acute J44.1 - CHRONIC OBSTRUCTIVE PULMONARY DISEASE W (ACUTE) EXACERBATION Comment/Plan: Continue O2 nebs and pulmonary toilet. Wean off IV steroids (3) Atrial fibrillation Chronic I48.91 - UNSPECIFIED ATRIAL FIBRILLATION Qualifiers: Atrial fibrillation type: chronic Qualified Code(s): I48.2 - Chronic atrial fibrillation Comment/Plan: Rate controlled continue anticoagulation (4) Sepsis Acute A41.9 - SEPSIS, UNSPECIFIED ORGANISM Qualifiers: Sepsis type: sepsis due to unspecified organism Qualified Code(s): A41.9 - Sepsis, unspecified organism Comment/Plan: Hemodynamically more stable (5) Dyslipidemia Acute E78.5 - HYPERLIPIDEMIA, UNSPECIFIED Comment/Plan: Continue Lipitor (6) GERD (gastroesophageal reflux disease) Acute K21.9 - GASTRO-ESOPHAGEAL REFLUX DISEASE WITHOUT ESOPHAGITIS Qualifiers: Esophagitis presence: without esophagitis Qualified Code(s): K21.9 - Gastro -esophageal reflux disease without esophagitis Comment/Plan: On PPI Case Care Discussed with: Patient, Nursing Staff, Blanket Maker Education/Counseling Given To: Patient Education/Counseling Given Regarding: Diagnosis, Treatment, Prognosis, Follow Up Total Time: 45 min . Critical Care: No Code: 43745 (12+)
[2016-07-13] MEDS ORDERED: METHYLPREDNISOLONE 40 MG/1 ML VIAL IV SCH (20:00)
[2016-07-13] MEDS: CEFTRIAXONE 1 GM in D5W 100 ML IV SCH (21:07)
[2016-07-13] MEDS: ATORVASTATIN 20 MG TAB PO SCH (21:09)
[2016-07-13] MEDS: AMITRIPTYLINE 50 MG TAB PO SCH (21:09)
[2016-07-13] MEDS: LATANOPROST 0.005% OPHTH SOLN 2.5 ML OU SCH (21:16)
[2016-07-13] MEDS: METHYLPREDNISOLONE 40 MG/1 ML VIAL IV SCH (23:57)
[2016-07-14] MEDS: Albuterol/Ipratropium Neb 3 ML NEB NEB SCH ×3 (02:35→13:27)
[2016-07-14] MEDS: LORAZEPAM 2 MG/ML VIAL IV PRN (03:43)
[2016-07-14 05:19] VITALS: BMI 26.1
[2016-07-14] MEDS: NS 1,000 ML IV SCH ×3 (05:59→15:45)
[2016-07-14] MEDS: METOCLOPRAMIDE 10 MG TAB PO SCH ×3 (06:01→16:32)
[2016-07-14] MEDS: REGULAR INSULIN 100 UNITS/ML - 3 ML VIAL SQ SCH ×3 (06:01→16:39)
[2016-07-14] MEDS: PANTOPRAZOLE 40 MG TAB PO SCH (06:01)
[2016-07-14 06:36] LABS: ALLEN'S TEST PASS; TCO2 40.6 MMOL/L (23-27)
[2016-07-14 06:39] LABS: ABG Draw Site Right Radial
[2016-07-14 07:29] LABS: PT-INR 1.9
[2016-07-14] MEDS: ARTIFICIAL TEARS OPH SOLN 15 ML OU SCH (08:08)
[2016-07-14] MEDS: NACL 0.65% NASAL 45 ML BOTTLE NAS SCH (08:08)
[2016-07-14] MEDS: BRIMONIDINE 0.1% OPHTH SOLN 5 ML OU SCH (08:08)
[2016-07-14] MEDS: DORZOLAMIDE/TIMOLOL OPHTH SOLN 10 ML OU SCH (08:09)
[2016-07-14] MEDS: Docusate Sodium 100 MG CAP PO SCH (08:11)
[2016-07-14] MEDS: CARVEDILOL 6.25 MG TAB PO SCH (08:11)
[2016-07-14] MEDS: Aluminum;Magnesium;Simethicone 30 ML UDC PO SCH ×3 (08:11→15:45)
[2016-07-14] MEDS: GUAIFENESIN 600 MG LA TAB PO SCH (08:11)
[2016-07-14] MEDS: FERROUS SULFATE 324 MG TAB PO SCH (11:13)
[2016-07-14] MEDS: VITAMINS, MULTIPLE CAP PO SCH (11:13)
[2016-07-14] MEDS: METHYLPREDNISOLONE 40 MG/1 ML VIAL IV SCH (11:14)
--- NOTE | 2016-07-14 15:43 | PCM.DCS92 ---
- Final/Secondary Discharge Diagnosis (1) Bilateral pneumonia Acute J18.9 - PNEUMONIA, UNSPECIFIED ORGANISM Present on Admission: Yes due to unspecified organism unspecified part of lung J18.9 - Pneumonia, unspecified organism Comment: Continue O2. Continue finish another week of p.o. Levaquin and Augmentin (2) COPD exacerbation Resolved J44.1 - CHRONIC OBSTRUCTIVE PULMONARY DISEASE W (ACUTE) EXACERBATION Present on Admission: Yes Comment: Continue O2 nebs and pulmonary toilet. Continue finish course of prednisone (3) Atrial fibrillation Chronic I48.91 - UNSPECIFIED ATRIAL FIBRILLATION Present on Admission: Yes chronic I48.2 - Chronic atrial fibrillation Comment: Rate controlled continue anticoagulation (4) Sepsis Resolved A41.9 - SEPSIS, UNSPECIFIED ORGANISM Present on Admission: Yes sepsis due to unspecified organism A41.9 - Sepsis, unspecified organism Comment: Hemodynamically more stable (5) Dyslipidemia Chronic E78.5 - HYPERLIPIDEMIA, UNSPECIFIED Present on Admission: Yes Comment: Continue Lipitor (6) GERD (gastroesophageal reflux disease) Acute K21.9 - GASTRO-ESOPHAGEAL REFLUX DISEASE WITHOUT ESOPHAGITIS without esophagitis K21.9 - Gastro-esophageal reflux disease without esophagitis Comment: On PPI Discharge Disposition: assisted Discharge Condition: Improved Cognitive Discharge Status: Unimpaired Fuctional Discharge Status: Walker Assistance New Prescriptions: Amoxicillin/Potassium Clav [Augmentin 875-125 Tablet] 1 each PO BID(KARY) #14 tablet Albuterol/Ipratropium Neb [Duoneb] 3 ml NEB Q6H #120 nebu Furosemide [Lasix] 40 mg PO DAILY #90 tablet Levofloxacin [Levaquin] 750 mg PO DAILY #7 tablet PEG-Electrolytes (Miralax) [Miralax] 17 gm PO HS #1 each Prednisone 10 mg PO DAILY #30 tab.ds.pk Warfarin Sodium 4 mg PO MOWEFR #30 tablet O2 Device: Nasal Cannula Oxygen to be used after Discharge: Continuous Diet at Discharge: Heart Healthy, High Fiber Activity: As Tolerated, Limited Call Office For: Fever over 101 F Discontinue use of:: Alcohol, All Illegal Substances, All Types of Tobacco - DC Summary Notes Hospital Course Note:: Discharge summary on patient named JUSTIN LEMUS admitted to [facility] on 07/06/16 by Harmeet Allison MD. Date of discharge is []. Patient was initially brought to emergency room on July 06 for evaluation of worsening difficulties breathing cough phlegm production shaking chills and fevers chest tightness wheezes and platelets chest pain. Please refer to the admission for further details. Upon arrival in ED patient was found to be in severe respiratory distress hypoxic tachypneic and tachycardic. His PaO2 was 49 on 2 L. Patient was placed on BiPAP and admitted to ICU. Treatment of IV fluids broad-spectrum IV antibiotics and IV steroids was instituted along with nebulized bronchodilators. Chest x-ray showed patchy bilateral bibasilar all infiltrates. Her patient remained critically ill for initial few days of hospitalization and required aggressive pulmonary care in ICU setting. His pulmonary status has slowly but progressively improved and stabilized and he was weaned off BiPAP. Treatment of IV antibiotics was continued. Outpatient regimen for his chronic medical conditions was continued as well. Was gradually weaned off oxygen to 2 L nasal cannula, he was also weaned off IV steroids. Patient was kept on Coumadin and this medication has to be withheld for couple days due to elevated INR. Nutritional support was maximized and patient was seen by PT OT. By the time of discharge she was able to walk short distance with walker. Patient renal function remained stable. It was felt that by Jul patient has reached maximum benefit of inpatient therapy and in clinically improved condition he has been discharged back to assisted Total Time: 45 min . Code: 50628 (>30min.) - Physical Exam Vital Signs: Last Vital Signs Temp 98.0 F 07/14/16 14:25 Pulse 78 07/14/16 14:25 Resp 20 07/14/16 14:25 BP 154/77 07/14/16 14:25 Pulse Ox 93 07/14/16 14:25 Oxygen Pulse Oxygen Saturation 93 O2 Device Nasal Cannula Oxygen Flow Rate 3 Fraction of Inspired Oxygen ( 30 FIO2) Constitutional: Alert (Awake), Distress, Other (Severe distress with conversational dyspnea). negative: Well appearing (Acutely ill-appearing) Oriented to: Person - HEENT Head: Normal ( normocephalic) Eye: Normal (PERRL, EOMI, Sclera white) Oropharynx: Normal (Pharynx:Moist without exudate,Gums-no swelling) Nose: No Symptoms Reported (septum midline) - Respiratory/Cardiovascular Respiratory: Accessory Muscle Use, Rales, Rhonchi, Wheezes - GI Auscultation: Normal (NABS) Palpation: Normal (Soft,No rebound or guarding, non distended), Other (Right abdominal urostomy) Tenderness: Non tender - Musculoskeletal Back: Normal (Non-Tender) Extremities: Normal (Normal tone, Pulses 2+ No cyanosis or edema, FROM), Femoral Pulse, Pedal Pulse - Integumentary Lymphatics: Normal (no adenopathy). negative: Adenopathy - Neurologic Memory Impaired: Normal Cerebellar: Normal Mood Description: Normal Thought: Coherent Perception: Normal
[2016-07-14] MEDS: Levofloxacin 750 mg/150 ml D5W 750 MG/150 ML RTU IV SCH (15:45)
[2016-07-14 16:27] VITALS: BP 152/81; PULSE 100; TEMP 98.5
[2016-07-14] MEDS: This patient is receiving warfarin therapy SCH (16:31)
== END 2016-07-14 18:12 | DRG 871 ==
LOC: EEVIPCON 16:01 → ED 16:01 → ICU 17:38 → MPS3 07-08 17:34
PROVIDERS: ADMIT Hospitalist; ATTEND Internal Medicine
PROC: 5A09357 Assistance with Respiratory Ventilation, Less than 24 Consecutive Hours, Continuous Positive Airway Pressure (ICD-10-PCS; principal; 2016-07-06)
PROC: 03983ZZ Drainage of Left Brachial Artery, Percutaneous Approach (ICD-10-PCS; 2016-07-06)
DX: A41.9 Sepsis, unspecified organism (principal); J18.9 Pneumonia, unspecified organism; J96.01 Acute respiratory failure with hypoxia; J96.02 Acute respiratory failure with hypercapnia; J44.1 Chronic obstructive pulmonary disease with (acute) exacerbation; I48.2 Chronic atrial fibrillation; I25.10 Atherosclerotic heart disease of native coronary artery without angina pectoris; T45.515A Adverse effect of anticoagulants, initial encounter; R79.1 Abnormal coagulation profile; J61 Pneumoconiosis due to asbestos and other mineral fibers; Z86.73 Personal history of transient ischemic attack (TIA), and cerebral infarction without residual deficits; E78.5 Hyperlipidemia, unspecified; K21.9 Gastro-esophageal reflux disease without esophagitis; Z87.891 Personal history of nicotine dependence; Z79.899 Other long term (current) drug therapy; Z79.01 Long term (current) use of anticoagulants
CPT/HCPCS: 36415; 36600; 71010; 80048; 80053; 80202; 82803; 82962; 83036; 83880; 84484; 85007; 85027; 85610; 85730; 87040; 87070; 87205; 87641; 87804; 93005; 94640; 94660; 96365; 96372; 96375; 99284; G0237; J0360; J0456; J0696; J1650; J1956; J2060; J2405; J2920; J2930; J3370; J3490; J7060; J7070; J7620

== ENCOUNTER 2016-07-28 12:57 | Emergency (ER) | payer OTHER ==
[2016-07-28 13:20] VITALS: TEMP 97.9; BMI 25.2
[2016-07-28 13:46] LABS: AUTOMATED BASOPHIL 0.2 % (0-2); AUTOMATED LYMPH 9.6 % (17-44); AUTOMATED NEUTROPHIL 81.2 % (45-76)
--- NOTE | 2016-07-28 13:53 | EDPRACDOC ---
- General Information Information Source: Patient Mode Of Arrival: [facility] - History of Present Illness HPI: PT PRESENTS FROM [facility] WITH UPPER ABD PAIN, DIFFICULTY MOVING BOWELS. PASSING OUT. COUGH. PNEUMONIA IN LATE JUNE; <Andrea North - Last Filed: 07/28/16 15:35> <Gladis Estrada - Last Filed: 07/28/16 17:41> - General Information Chief Complaint: Flu-Like Symptoms Stated Complaint: ABDOMINAL PAIN Time Seen by Provider: 07/28/16 13:39 Home Medications: Home Medications Acetaminophen 650 mg PO Q8H PRN 07/06/16 Aluminum;Magnesium;Simethicone [Maalox Plus, Mylanta] 15 ml PO QID 07/06/16 Amitriptyline HCl 50 mg PO QHS 07/06/16 Guaifenesin [Humabid, Mucinex] 600 mg PO BID 07/06/16 Metoclopramide HCl 10 mg PO TIDAC 07/06/16 Pantoprazole Sodium [Protonix] 40 mg PO DAILY 07/06/16 Warfarin Sodium 5 mg PO SUMOWEFRSA 07/06/16 Albuterol/Ipratropium Neb [Duoneb] 3 ml NEB Q6H #120 nebu 07/14/16 Prednisone 10 mg PO DAILY #30 tab.ds.pk 07/14/16 Albuterol Sulfate Nebs [Proventil, Ventolin] 3 ml INH Q4H PRN 07/28/16 Beclomethasone Dipropionate [Qvar] 1 puff INH BID 07/28/16 Furosemide [Lasix] 20 mg PO BID 07/28/16 Ipratropium [Atrovent Hfa] 1 puff INH QID 07/28/16 Levofloxacin [Levaquin] 750 mg PO DAILY #6 tab 07/28/16 PEG-Electrolytes (Miralax) [Miralax] 17 gm PO DAILY 07/28/16 Promethazine [Phenergan] 25 mg PO Q4H PRN 07/28/16 Warfarin Sodium 4 mg PO TUTH 07/28/16 Allergies/Adverse Reactions: Allergies Allergy/AdvReac Type Severity Reaction Status Date / Time No Known Allergies Allergy Verified 07/06/16 18:17 ED Past Medical History - History Reviewed Yes Nurses notes reviewed and agree except as marked - Patient Medical History Neurological History: Reports: Cerebrovascular Accident (X2) Cardiac History: Reports: Coronary Artery Disease, Atrial Fibrillation, Hypertension, Hypercholesterolemia Respiratory History: Reports: COPD, Asbestosis, Pneumonia (06/06/16) GI/ History: Reports: Renal Disease Musculoskeletal History: Reports: Arthritis Psychological History: Denies: Depression Systemic History: Reports: Cancer Surgical History: Reports: Other (Urostomy) - Social Medical History Smoking Status: Former smoker <Andrea North - Last Filed: 07/28/16 15:35> EDM Review of Systems - Review of Systems ROS Negative Except as Marked: Yes All systems reviewed and were negative except as marked Constitutional: Weakness Respiratory: Cough, Shortness of Breath Cardiovascular: No Symptoms Reported Gastrointestinal: Pain Musculoskeletal: No Symptoms Reported Integumentary: No Symptoms Reported <Andrea North - Last Filed: 07/28/16 15:35> - Physical Exam Constitutional: Alert (Awake), Other (CHRONICALLY ILL APPEARING.) Oriented to: Time, Person, Place Last recorded Vital Signs: Last Vital Signs Temp 97.9 F 07/28/16 13:16 Pulse 105 07/28/16 13:39 Resp 18 07/28/16 13:39 BP 146/79 07/28/16 13:39 Pulse Ox 94 07/28/16 13:39 Oxygen Pulse Oxygen Saturation 94 O2 Device Nasal Cannula Oxygen Flow Rate 3 Fraction of Inspired Oxygen ( FIO2) - HEENT Head: Normal ( normocephalic) Eye Exam: Normal (PERRL, EOMI, Sclera white) Oropharynx: Normal (Pharynx:Moist without exudate,Gums-no swelling) Nose: No Symptoms Reported (septum midline) Neck: Normal (FROM, trachea at midline) - Respiratory/Cardiovascular Respiratory: Rhonchi Cardiovascular: Normal (RRR without murmur, gallop or rub) - GI Auscultation: Normal (NABS) Palpation: Normal (Soft,No rebound or guarding, non distended) Tenderness: Other (MILD UPPER ABD TTP.) Mayorga's Sign: Negative - Musculoskeletal Back: Normal (Non-Tender) Extremities: Normal (Normal tone, Pulses 2+ No cyanosis or edema, FROM) - Integumentary Skin: Normal, Warm, Dry Lymphatics: Normal (no adenopathy) - Neurologic Memory Impaired: Normal Motor Function: Normal (Normal tone, Pulses 2+ No cyanosis or edema, FROM) Cranial Nerve: Normal (CN II-X11 intact sensation, strength 5/5) Cerebellar: Normal Mood Description: Normal Perception: Normal <Andrea North - Last Filed: 07/28/16 15:35> - Physical Exam Last recorded Vital Signs: Last Vital Signs Temp 97.9 F 07/28/16 13:16 Pulse 99 07/28/16 16:56 Resp 16 07/28/16 16:56 BP 166/73 07/28/16 16:56 Pulse Ox 90 L 07/28/16 16:56 Oxygen Pulse Oxygen Saturation 90 O2 Device Nasal Cannula Oxygen Flow Rate 1 Fraction of Inspired Oxygen ( FIO2) <Gladis Estrada - Last Filed: 07/28/16 17:41> ED SOB MDM - Results Result Diagrams: 07/28/16 13:23 07/28/16 14:44 Results: WBC 6.8 xk/uL (3.8-10.8) 07/28/16 13:23 RBC 4.75 xM/uL (4.70-6.10) 07/28/16 13:23 Hgb 11.7 g/dL (14.0-18.0) L 07/28/16 13:23 Hct 38.5 % (42-52) L 07/28/16 13:23 MCV 81 fL (80-94) 07/28/16 13:23 MCH 24.7 pg (27-32) L 07/28/16 13:23 MCHC 30.5 g/dl (33-36) L 07/28/16 13:23 RDW 17.9 % (11.5-14.5) H 07/28/16 13:23 Plt Count 184 xk/uL (130-400) 07/28/16 13:23 MPV 7.0 fL (7.4-10.4) L 07/28/16 13:23 Neut % (Auto) 81.2 % (45-76) H 07/28/16 13:23 Lymph % (Auto) 9.6 % (17-44) L 07/28/16 13:23 [place] % (Auto) 7.0 % (3-10) 07/28/16 13:23 Eos % (Auto) 2.0 % (0-5) 07/28/16 13:23 Baso % (Auto) 0.2 % (0-2) 07/28/16 13:23 Absolute Neuts (auto) 5.51 xk/uL (1.7-8.2) 07/28/16 13:23 Absolute Lymphs (auto) 0.61 xk/uL (0.65-4.75) L 07/28/16 13:23 Lab Results 07/28/16 13:23 WBC 6.8 RBC 4.75 Hgb 11.7 L Hct 38.5 L MCV 81 MCH 24.7 L MCHC 30.5 L RDW 17.9 H Plt Count 184 MPV 7.0 L Neut % (Auto) 81.2 H Lymph % (Auto) 9.6 L [place] % (Auto) 7.0 Eos % (Auto) 2.0 Baso % (Auto) 0.2 Absolute Neuts (auto) 5.51 Absolute Lymphs (auto) 0.61 L - EKG EKG #1 EKG Time: 13:53 -: Yes EKG interpreted by me Rate: bpm: 88 [place]: Normal Rhythm: NSR Block: None Hypertrophy: None ST: Normal Comments: normal ekg <Andrea North - Last Filed: 07/28/16 15:35> - Re-evaluation Re-evaluation 3 Re-evaluation Time: 17:40 Re-evaluation: OXYGEN SATURATION 91%ON 0.5 L NASAL CANNULA (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 NO RESPIRATORY DISTRESS AND NO SIGNIFICANT NAUSEA VOMITING IS ANTICIPATED DO WELL AN OUTPATIENT WAS DISCUSSED WITH THE HOSPITALIST. - Results Result Diagrams: 07/28/16 13:23 07/28/16 14:44 Results: WBC 6.8 xk/uL (3.8-10.8) 07/28/16 13:23 RBC 4.75 xM/uL (4.70-6.10) 07/28/16 13:23 Hgb 11.7 g/dL (14.0-18.0) L 07/28/16 13:23 Hct 38.5 % (42-52) L 07/28/16 13:23 MCV 81 fL (80-94) 07/28/16 13:23 MCH 24.7 pg (27-32) L 07/28/16 13:23 MCHC 30.5 g/dl (33-36) L 07/28/16 13:23 RDW 17.9 % (11.5-14.5) H 07/28/16 13:23 Plt Count 184 xk/uL (130-400) 07/28/16 13:23 MPV 7.0 fL (7.4-10.4) L 07/28/16 13:23 Neut % (Auto) 81.2 % (45-76) H 07/28/16 13:23 Lymph % (Auto) 9.6 % (17-44) L 07/28/16 13:23 [place] % (Auto) 7.0 % (3-10) 07/28/16 13:23 Eos % (Auto) 2.0 % (0-5) 07/28/16 13:23 Baso % (Auto) 0.2 % (0-2) 07/28/16 13:23 Absolute Neuts (auto) 5.51 xk/uL (1.7-8.2) 07/28/16 13:23 Absolute Lymphs (auto) 0.61 xk/uL (0.65-4.75) L 07/28/16 13:23 PT 32.6 SEC (9.2-11.2) H 07/28/16 13:23 INR 3.1 07/28/16 13:23 APTT 41.7 SEC (22-35) H 07/28/16 13:23 Puncture Site Lra 07/28/16 14:55 pH 7.390 pH UNITS (7.35-7.45) 07/28/16 14:55 pCO2 75.0 mmHg (35-45) H* 07/28/16 14:55 pO2 93.0 mmHg (80-100) 07/28/16 14:55 HCO3 45.4 MMOL/L (22-26) H 07/28/16 14:55 Total CO2 47.7 MMOL/L (23-27) H 07/28/16 14:55 Base Excess 16.5 (+/- 2) H 07/28/16 14:55 FiO2 % 2 l/m nc 07/28/16 14:55 Specimen Drawn By Dared 07/28/16 14:55 Sodium 142 mEq/L (137-146) 07/28/16 14:44 Potassium 4.0 mEq/L (3.5-5.1) 07/28/16 14:44 Chloride 97 mEq/L (98-107) L 07/28/16 14:44 Carbon Dioxide 39 mMOL/L (22-33) H 07/28/16 14:44 Anion Gap 10 mEq/L (8-16) 07/28/16 14:44 BUN 17 MG/DL (9-20) 07/28/16 14:44 Creatinine 0.60 MG/DL (0.66-1.25) L 07/28/16 14:44 Estimated GFR (MDRD) > 60 mL/min (>=60) 07/28/16 14:44 Glucose 106 MG/DL (70-99) H 07/28/16 14:44 Calculated Osmolality 275 MOs/Kg (270-290) 07/28/16 14:44 Lactic Acid 1.3 mEq/L (0.7-2.1) 07/28/16 13:23 Calcium 8.8 MG/DL (8.4-10.2) 07/28/16 14:44 Corrected Calcium 9.5 MG/DL (8.4-10.2) 07/28/16 14:44 Total Bilirubin 0.4 MG/DL (0.2-1.3) 07/28/16 14:44 AST 21 IU/L (17-59) 07/28/16 14:44 ALT 24 IU/L (21-72) 07/28/16 14:44 Alkaline Phosphatase 81 IU/L (50-160) 07/28/16 14:44 Troponin I 0.02 ng/mL (<.04) 07/28/16 16:15 Lpk-V-Dalyjiqeggv Pept 167 pg/mL (0-900) 07/28/16 14:44 Total Protein 6.6 G/DL (6.3-8.2) 07/28/16 14:44 Albumin 3.3 G/DL (3.5-5.0) L 07/28/16 14:44 Microbiology 07/28/16 14:00 Influenza Type A Antigen Screen - Final N/P - Naso/Pharyngeal NEGATIVE Please note: A NEGATIVE result does not exclude an influenza virus infection. It is a presumptive result and, if required, confirmation should be done using either a virus culture or an FDA-cleared influenza A&B molecular assay. ("NORMAL" value = "NEGATIVE".) Influenza Type B Antigen Screen - Final NEGATIVE Please note: A NEGATIVE result does not exclude an influenza virus infection. It is a presumptive result and, if required, confirmation should be done using either a virus culture or an FDA-cleared influenza A&B molecular assay. ("NORMAL" value = "NEGATIVE".) Lab Results 07/28/16 07/28/16 07/28/16 16:15 14:55 14:44 WBC RBC Hgb Hct MCV MCH MCHC RDW Plt Count MPV Neut % (Auto) Lymph % (Auto) [place] % (Auto) Eos % (Auto) Baso % (Auto) Absolute Neuts (auto) Absolute Lymphs (auto) PT INR APTT Puncture Site Lra pH 7.390 pCO2 75.0 H* pO2 93.0 HCO3 45.4 H Total CO2 47.7 H Base Excess 16.5 H FiO2 % 2 l/m nc Specimen Drawn By Dared Sodium 142 Potassium 4.0 Chloride 97 L Carbon Dioxide 39 H Anion Gap 10 BUN 17 Creatinine 0.60 L Estimated GFR (MDRD) > 60 Glucose 106 H Calculated Osmolality 275 Lactic Acid Calcium 8.8 Corrected Calcium 9.5 Total Bilirubin 0.4 AST 21 ALT 24 Alkaline Phosphatase 81 Troponin I 0.02 0.02 Jbh-C-Kvbeofqbcag Pept 167 Total Protein 6.6 Albumin 3.3 L 07/28/16 07/28/16 07/28/16 13:23 13:23 13:23 WBC 6.8 RBC 4.75 Hgb 11.7 L Hct 38.5 L MCV 81 MCH 24.7 L MCHC 30.5 L RDW 17.9 H Plt Count 184 MPV 7.0 L Neut % (Auto) 81.2 H Lymph % (Auto) 9.6 L [place] % (Auto) 7.0 Eos % (Auto) 2.0 Baso % (Auto) 0.2 Absolute Neuts (auto) 5.51 Absolute Lymphs (auto) 0.61 L PT 32.6 H INR 3.1 APTT 41.7 H Puncture Site pH pCO2 pO2 HCO3 Total CO2 Base Excess FiO2 % Specimen Drawn By Sodium Potassium Chloride Carbon Dioxide Anion Gap BUN Creatinine Estimated GFR (MDRD) Glucose Calculated Osmolality Lactic Acid 1.3 Calcium Corrected Calcium Total Bilirubin AST ALT Alkaline Phosphatase Troponin I Lke-I-Ayczzpxfkay Pept Total Protein Albumin - Diagnostic Imaging Abdomen Image interpreted by: Radiologist Diagnostic Imaging Comments: Patient Name: JUSTIN LEMUS LOC: ED : 1940 AGE: 76 Order Date:07/28/16 Date of Service: Report # [id number] Ord Physician: Andrea North DO Exam # [id number] Emergency Physician: Gladis Estrada MD Exam(s): [id number] CT/CT ABD-PELV W/IV CM CLINICAL DATA: 76-year-old male with upper abdominal pain. History of bladder cancer and throat cancer. Asbestos exposure. Constipation. EXAM: CT ABDOMEN AND PELVIS WITH CONTRAST TECHNIQUE: Multidetector CT imaging of the abdomen and pelvis was performed using the standard protocol following bolus administration of intravenous contrast. CONTRAST: 100 mL of Isovue 370. COMPARISON: No priors. FINDINGS: Lower chest: Multiple large calcified pleural plaques throughout the visualized lower thorax. Small bilateral thick-walled pleural effusions. Cardiomegaly. Atherosclerotic calcifications in the left main and left anterior descending coronary arteries. Hepatobiliary: No cystic or solid hepatic lesions. No intra or extrahepatic biliary ductal dilatation. Gallbladder is normal in appearance. Pancreas: No pancreatic mass. No pancreatic ductal dilatation. No pancreatic or peripancreatic fluid or inflammatory changes. Spleen: Unremarkable. Adrenals/Urinary Tract: Bilateral kidneys and bilateral adrenal glands are normal in appearance. No hydroureteronephrosis. 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 Stomach/Bowel: Normal appearance of the stomach. No pathologic dilatation of small bowel or colon. Numerous colonic diverticulae are noted, without surrounding inflammatory changes to suggest an acute diverticulitis at this time. Appendix is not visualized, likely surgically absent. Vascular/Lymphatic: Atherosclerosis throughout the abdominal and pelvic vasculature, without evidence of aneurysm or dissection. No lymphadenopathy noted in the abdomen or pelvis. Surgical clips along the pelvic sidewall bilaterally, presumably from prior lymph node dissection. Reproductive: Status post radical cystoprostatectomy. Penile prosthesis incidentally noted. Other: No significant volume of ascites. No pneumoperitoneum. Musculoskeletal: There are no aggressive appearing lytic or blastic lesions noted in the visualized portions of the skeleton. IMPRESSION: 1. No acute findings in the abdomen or pelvis to account for the patient's symptoms. 2. Small bilateral thick-walled pleural effusions. Extensive calcified pleural plaques throughout the lower thorax bilaterally, compatible with asbestos related pleural disease. 3. 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 4. Atherosclerosis, including left main and left anterior descending coronary artery disease. Assessment for potential risk factor modification, dietary therapy or pharmacologic therapy may be warranted, if clinically indicated. 5. Colonic diverticulosis without evidence of acute diverticulitis at this time. 6. Additional incidental findings, as above. Electronically Signed By: Trevon Fitzgerald M.D. On: 07/28/2016 16:51 Electronically Signed By: Trevon Fitzgerald MD Electronically Signed Date/Time: 653 Dictate Date/Time: 07/28/161645 Technologist: Lauren Berrios Transcribed By: Marisa Transcribed Date/Time: 07/28/16 1651 <Gladis Estrada - Last Filed: 07/28/16 17:41> - Departure Yes I personally saw and evaluated the patient. Disposition: correction Education/Counseling Given To: Patient Education/Counseling Given Regarding: Diagnosis <Andrea North - Last Filed: 07/28/16 15:35> <Gladis Estrada - Last Filed: 07/28/16 17:41> - Departure Final Diagnosis: Upper abdominal pain Bilateral pneumonia Qualifiers: Pneumonia type: due to unspecified organism Lung location: lower lobe of lung Qualified Code(s): J18.9 - Pneumonia, unspecified organism Instructions: Abdominal Pain (ED) Referrals: Juan J Saeed MD [Primary Care Provider] - One Week Prescriptions: Levofloxacin [Levaquin] 750 mg PO DAILY #6 tab Additional Instructions: RETURN TO THE ED FOR WORSE OR DIFFERENT PROBLEMS,, DIFFICULTY BREATHING, ANY CONCERN.
[2016-07-28 13:58] LABS: PARTIAL THROMB. TIME 41.7 SEC (22-35); PT-INR 3.1
--- NOTE | 2016-07-28 14:24 | DIRPT ---
CLINICAL DATA: 76-year-old male presenting with cough and chills. Upper abdominal pain. Lethargy. EXAM: PORTABLE CHEST 1 VIEW COMPARISON: Chest x-ray 07/11/2016. FINDINGS: Lung volumes are low. Extensive multifocal opacities throughout the mid to lower lungs bilaterally (left greater than right). Multifocal pleural thickening, some of which is calcified, presumably calcified pleural plaques. Pleural effusions are not excluded, but cannot be adequately assessed on this single view examination given the extent of pleural thickening. No evidence of pulmonary edema. Cardiac silhouette is partially obscured, but appears likely within normal limits of size. The patient is rotated to the left on today's exam, resulting in distortion of the mediastinal contours and reduced diagnostic sensitivity and specificity for mediastinal pathology. Atherosclerosis in the thoracic aorta. IMPRESSION: 1. Low lung volumes with areas of atelectasis and/or consolidation throughout the mid to lower lungs bilaterally (left greater than right). 2. Extensive calcified pleural plaques bilaterally, suggesting underlying asbestos related pleural disease. 3. Atherosclerosis. Electronically Signed By: Trevon Fitzgerald M.D. On: 07/28/2016 14:21
[2016-07-28] MEDS ORDERED: Levofloxacin 750 mg/150 ml D5W 750 MG/150 ML RTU IV ONE (14:45)
[2016-07-28] MEDS ORDERED: PIPERACILLIN AND TAZOBACTAM 3.375 GM in D5W 100 ML IV ONE (14:45)
[2016-07-28 14:57] LABS: ALLEN'S TEST PASS; BEb 16.5 (+/- 2); TCO2 47.7 MMOL/L (23-27)
[2016-07-28 14:58] LABS: ABG Draw Site LRA
[2016-07-28 15:06] LABS: BLOOD UREA NITROGEN 17 MG/DL (9-20); CALC CORRECTED 9.5 MG/DL (8.4-10.2); CALCIUM 8.8 MG/DL (8.4-10.2); CALCULATED OSMOLALITY 275 MOs/Kg (270-290); CHLORIDE 97 mEq/L (98-107); GLUCOSE 106 MG/DL (70-99); SODIUM LEVEL 142 mEq/L (137-146); TOTAL PROTEIN 6.6 G/DL (6.3-8.2)
[2016-07-28] MEDS ORDERED: Pharmacy Review for Metformin - IV Contrast Given SCH (16:00)
--- NOTE | 2016-07-28 16:53 | DIRPT ---
CLINICAL DATA: 76-year-old male with upper abdominal pain. History of bladder cancer and throat cancer. Asbestos exposure. Constipation. EXAM: CT ABDOMEN AND PELVIS WITH CONTRAST TECHNIQUE: Multidetector CT imaging of the abdomen and pelvis was performed using the standard protocol following bolus administration of intravenous contrast. CONTRAST: 100 mL of Isovue 370. COMPARISON: No priors. FINDINGS: Lower chest: Multiple large calcified pleural plaques throughout the visualized lower thorax. Small bilateral thick-walled pleural effusions. Cardiomegaly. Atherosclerotic calcifications in the left main and left anterior descending coronary arteries. Hepatobiliary: No cystic or solid hepatic lesions. No intra or extrahepatic biliary ductal dilatation. Gallbladder is normal in appearance. Pancreas: No pancreatic mass. No pancreatic ductal dilatation. No pancreatic or peripancreatic fluid or inflammatory changes. Spleen: Unremarkable. Adrenals/Urinary Tract: Bilateral kidneys and bilateral adrenal glands are normal in appearance. No hydroureteronephrosis. 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 Stomach/Bowel: Normal appearance of the stomach. No pathologic dilatation of small bowel or colon. Numerous colonic diverticulae are noted, without surrounding inflammatory changes to suggest an acute diverticulitis at this time. Appendix is not visualized, likely surgically absent. Vascular/Lymphatic: Atherosclerosis throughout the abdominal and pelvic vasculature, without evidence of aneurysm or dissection. No lymphadenopathy noted in the abdomen or pelvis. Surgical clips along the pelvic sidewall bilaterally, presumably from prior lymph node dissection. Reproductive: Status post radical cystoprostatectomy. Penile prosthesis incidentally noted. Other: No significant volume of ascites. No pneumoperitoneum. Musculoskeletal: There are no aggressive appearing lytic or blastic lesions noted in the visualized portions of the skeleton. IMPRESSION: 1. No acute findings in the abdomen or pelvis to account for the patient's symptoms. 2. Small bilateral thick-walled pleural effusions. Extensive calcified pleural plaques throughout the lower thorax bilaterally, compatible with asbestos related pleural disease. 3. 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 4. Atherosclerosis, including left main and left anterior descending coronary artery disease. Assessment for potential risk factor modification, dietary therapy or pharmacologic therapy may be warranted, if clinically indicated. 5. Colonic diverticulosis without evidence of acute diverticulitis at this time. 6. Additional incidental findings, as above. Electronically Signed By: Trevon Fitzgerald M.D. On: 07/28/2016 16:51
[2016-07-28 18:17] VITALS: BP 154/33; PULSE 101
== END 2016-07-28 18:46 | disposition home or self-care (01) ==
LOC: EEVIPCON 12:57 → ED 12:57
DX: J18.9 Pneumonia, unspecified organism (principal); R10.10 Upper abdominal pain, unspecified
CPT/HCPCS: 36415; 36600; 71010; 74177; 80053; 82803; 83605; 83880; 84484; 85025; 85610; 85730; 87040; 87804; 93005; 96365; 96375; 99284; A9698; J1956; J2543; J7060